=== PATIENT | male | born 1955 | race Caucasian/White ===

== ENCOUNTER 2018-03-20 13:14 | Inpatient (IN) | payer OTHER ==
--- OUTSIDE RECORDS SUMMARY | 2018-03-20 13:16 | XMS REPORT | Continuity of Care Document ---
:1955 Author Organization Interface Problems Problem Status Onset Classification Date Comments Source Date Reported C61 Active 01/31/20 [place] [id number] UNK Active 12/16/19 [place] [id number] DX: Active 11/14/19 [facility] [id number] NEOPLASM OF PROSTATE, Hypertension Active Problem 02/13/2017 [facility] MALIGNANT Active [facility] NEOPLASM OF PROSTATE Medications Medication Details Route Status Patient Ordering Order Source Instructions Provider Date Omnipaque 300 100 mL, Route: Inactive MISC, Drug 2016 [facility] Form: SOLN, ONCE, Start date: 02/10/17 10:18:00 CDT, Stop date: 02/10/17 10:18:00 CDTNotes: (Same as:Omnipaque 300). WASTE: F/P - Black; E - Municipal Trash Bin Acetaminophen 325 1 tab, PO, Q4H, Active MG / Hydrocodone PRN Pain Score 2016 [facility] Bitartrate 5 MG 4-6, 0 Oral Tablet Refill(s) Norvasc 10 mg, 2 tab, No Longer Route: PO, Drug Active 2016 [facility] form: TAB, Daily, Dosing Weight 82.727, kg, Start date: 01/30/17 9:00:00 CDT, Duration: 30 day, Stop date: 02/28/17 9:00:00 CDTNotes: (Same as: Norvasc) Simvastatin 20 mg, 1 tab, No Longer Route: PO, Drug Active 2016 [facility] form: TAB, Bedtime, Dosing Weight 82.727, kg, Start date: 01/29/17 21:00:00 CDT, Duration: 30 day, Stop date: 02/27/17 21:00:00 CDTNotes: (Same as: Zocor) Famotidine 20 mg, 1 tab, No Longer Route: PO, Drug Active 2016 [facility] form: TAB, Q12H, Dosing Weight 82.727, kg, Start date: 01/29/17 21:00:00 CDT, Duration: 30 day, Stop date: 02/28/17 9:00:00 CDTNotes: (Same as: Pepcid) Ciprofloxacin 400 mg, 200 mL, Inactive Route: IVPB, 2016 [facility] Drug form: INJ, [id number], Dosing Weight 82.727, kg, Start date: 01/29/17 20:00:00 CDT, Duration: 1 doses or times, Stop date: 01/29/17 20:00:00 CDT, ABX Indication: Surgical ProphylaxisNote s: Do not refrigerate Promethazine 6.25 mg, Route: Inactive IVPB, ONCE, 2016 [facility] Dosing Weight 82.727, kg, PRN Nausea & Vomiting, Start date: 01/29/17 15:31:00 CDT Ondansetron 4 mg, Route: Inactive IVP, ONCE, 2016 [facility] Dosing Weight 82.727, kg, PRN Nausea & Vomiting, Start date: 01/29/17 15:31:00 CDT Meperidine 12.5 mg, Route: Inactive IVP, Q30Min, 2016 [facility] Dosing Weight 82.727, kg, PRN Other -See Comment, For shivering, Start date: 01/29/17 15:31:00 CDT, Duration: 2 doses or times, Stop date: Limited # of times Flumazenil 0.2 mg, Route: Inactive IVP, PRN, 2016 [facility] Dosing Weight 82.727, kg, PRN Benzodiazepine Reversal, Initial dose, Start date: 01/29/17 15:31:00 CDT, Duration: 30 day, Stop date: 02/28/17 15:30:00 CDT Hydromorphone 0.5 mg, Route: Inactive IVP, Q5Min, 2016 [facility] Dosing Weight 82.727, kg, PRN Pain Score 7-10, Start date: 01/29/17 15:31:00 CDT, Duration: 4 doses or times, Stop date: Limited # of times Naloxone 0.4 mg, Route: Inactive IVP, Q2MIN, 2016 [facility] Dosing Weight 82.727, kg, PRN Narcotic Reversal, Start date: 01/29/17 15:31:00 CDT, Duration: 8 doses or times, Stop date: Limited # of times Albuterol 0.83 2.49 mg, Route: Inactive MG/ML Inhalant NEB, Q20Min, 2016 [facility] Solution Dosing Weight 82.727, kg, PRN Wheezing, Priority: STAT, Start date: 01/29/17 15:31:00 CDT, Duration: 30 day, Stop date: 02/28/17 15:30:00 CDT Diphenhydramine 12.5 mg, Route: Inactive IVP, Drug form: 2016 [facility] INJ, Q6H, Dosing Weight 82.727, kg, PRN Itching, Start date: 01/29/17 15:31:00 CDT, Duration: 30 day, Stop date: 02/28/17 15:30:00 CDT Calcium Chloride 1,000 mL, Rate: Inactive 0.0014 MEQ/ML / 125 ml/hr, 2016 [facility] Potassium Infuse over: 8 Chloride 0.004 hr, Route: IV, MEQ/ML / Sodium Dosing Weight Chloride 0.103 82.727 kg, MEQ/ML / Sodium Total Volume: Lactate 0.028 1,000, Start MEQ/ML Injectable date: 01/29/17 Solution 15:31:00 CDT, Duration: 30 day, Stop date: 02/28/17 15:30:00 CDT Acetaminophen 1,000 mg, Inactive Route: PO, Drug 2016 [facility] form: TAB, ONCE, Dosing Weight 82.727, kg, PRN Pain Score 1-3, Start date: 01/29/17 15:31:00 CDT, Duration: 1 doses or times, Stop date: Limited # of times Oxycodone 5 mg, Route: Inactive PO, Drug form: 2016 [facility] TAB, Q4H, Dosing Weight 82.727, kg, PRN Pain Score 4-6, Start date: 01/29/17 15:31:00 CDT, Duration: 30 day, Stop date: 02/28/17 15:30:00 CDT Hydralazine 10 mg, Route: Inactive IVP, Q20Min, 2016 [facility] Dosing Weight 82.727, kg, PRN Elevated BP, Start date: 01/29/17 15:31:00 CDT, Duration: 2 doses or times, Stop date: Limited # of times Labetalol 10 mg, Route: Inactive IVP, Q5Min, 2016 [facility] Dosing Weight 82.727, kg, PRN Elevated BP, Start date: 01/29/17 15:31:00 CDT, Duration: 5 doses or times, Stop date: Limited # of times esmolol 10 mg, Route: Inactive IVP, Q5Min, 2016 [facility] Dosing Weight 82.727, kg, PRN Other -See Comment, Start date: 01/29/17 15:31:00 CDT, Duration: 5 doses or times, Stop date: Limited # of times Fentanyl 25 microgram, Inactive Route: IVP, 2016 [facility] Q5Min, Dosing Weight 82.727, kg, PRN Pain Score 4-6, Priority: Routine, Start date: 01/29/17 15:31:00 CDT, Duration: 4 doses or times, Stop date: Limited # of times Enoxaparin 40 mg, 0.4 mL, No Longer Route: SUB-Q, Active 2016 [facility] Drug form: INJ, [id number], Dosing Weight 82.727, kg, Start date: 01/29/17 15:00:00 CDT, Duration: 30 day, Stop date: 02/27/17 8:00:00 CDTNotes: (Same as: Lovenox) glycopyrrolate Route: IV, Drug Inactive (ANES) form: INJ, 2016 [facility] ONCE, Stop date: 01/29/17 14:52:00 CDT neostigmine Route: IV, Drug Inactive (ANES) form: INJ, 2016 [facility] ONCE, Stop date: 01/29/17 14:52:00 CDT Saline Flush 0.9% 10 ml, Route: No Longer IVP, Drug Form: Active 2016 [facility] INJ, Dosing Weight 82.727, kg, PRN, PRN Line Flush, Start date: 01/29/17 14:47:00 CDT, Duration: 30 day, Stop date: 02/28/17 14:46:00 CDTNotes: (Same as: BD Posiflush) D5W 1/2NS + KCL 1,000 mL, Rate: No Longer 20mEq/L 1000ml 125 ml/hr, Active 2016 [facility] (Premix) 1,000 mL Infuse over: 8 hr, Route: IV, Dosing Weight 82.727 kg, Total Volume: 1,000, Start date: 01/29/17 14:47:00 CDT, Duration: 30 day, Stop date: 02/28/17 14:46:00 CDTNotes: PREMIX IV - Do Not Alter WASTE: F/P - Sink; E - Municipal Trash Bin Ondansetron 4 mg, 2 mL, No Longer Route: IVP, Active 2016 [facility] Drug form: INJ, Q6H, Dosing Weight 82.727, kg, PRN Nausea & Vomiting, Start date: 01/29/17 14:47:00 CDT, Duration: 30 day, Stop date: 02/28/17 14:46:00 CDTNotes: (Same as: Zofran) MEDICATION WASTE Product Size: 4 mg Product Wasted: ___ mg Promethazine 12.5 mg, 0.5 No Longer mL, Route: Active 2016 [facility] IVPB, Q4H, Dosing Weight 82.727, kg, PRN Nausea & Vomiting, Start date: 01/29/17 14:47:00 CDT, Duration: 30 day, Stop date: 02/28/17 14:46:00 CDTNotes: Do not give IV push. (Same as: Phenergan) Acetaminophen 325 1 tab, Route: No Longer MG / Hydrocodone PO, Drug Form: Active 2016 [facility] Bitartrate 10 MG TAB, Dosing Oral Tablet Weight 82.727, kg, Q4H, PRN Pain Score 4-6, Start date: 01/29/17 14:47:00 CDT, Duration: 30 day, Stop date: 02/28/17 14:46:00 CDTNotes: Do not exceed 4gm/day of acetaminophen. (Same as: [place] 325/10) Morphine 2 mg, 1 mL, No Longer Route: IVP, Active 2016 Drug form: SOLN, Q3H, Dosing Weight 82.727, kg, PRN Pain Score 1-3, Start date: 01/29/17 14:47:00 CDT, Duration: 30 day, Stop date: 02/28/17 14:46:00 CDT Acetaminophen 325 1 tab, Route: No Longer MG / Hydrocodone PO, Drug Form: Active 2016 Bitartrate 5 MG TAB, Dosing Oral Tablet Weight 82.727, kg, Q4H, PRN Pain Score 4-6, Start date: 01/29/17 14:47:00 CDT, Duration: 30 day, Stop date: 02/28/17 14:46:00 CDTNotes: (Same as: [place] 325/5) Do not exceed 4gm/day of acetaminophen. ondansetron Route: IV, Drug Inactive (ANES) form: INJ, 2016, Stop date: 01/29/17 13:27:00 CDT hydromorphone Route: IV, Drug Inactive (ANES) form: INJ, 2016, Stop date: 01/29/17 11:12:00 CDT acetaminophen Route: IV, Drug Inactive (ANES) form: INJ, 2016, Stop date: 01/29/17 8:32:00 CDT dexamethasone Route: IV, Drug Inactive MH (ANES) form: INJ2016, Stop date: 01/29/17 8:32:00 CDT ciprofloxacin Route: IV, Drug Inactive MH (ANES) form: INJ, 2016, Stop date: 01/29/17 8:32:00 CDT lidocaine (ANES) Route: IV, Drug Inactive form: INJ, 2016, Stop date: 01/29/17 8:27:00 CDT fentaNYL (ANES) Route: IV, Drug Inactive form: [id number], Stop date: 01/29/17 8:27:00 CDT midazolam (ANES) Route: IV, Drug Inactive form: SOLN, 2016, Stop date: 01/29/17 8:27:00 CDT propofol (ANES) Route: IV, Drug Inactive form: INJ, 2016 [facility] ONCE, Stop date: 01/29/17 8:27:00 CDT rocuronium (ANES) Route: IV, Drug Inactive form: INJ, 2016 [facility] ONCE, Stop date: 01/29/17 8:27:00 CDT succinylcholine Route: IV, Drug Inactive (ANES) form: INJ, 2016 ONCE, Stop date: 01/29/17 8:27:00 CDT LR 1000 mL INJ Route: IV, Inactive (ANES) Total Volume: 2016 [facility] 1,000, Start date: 01/29/17 7:25:00 CDT, Stop date: 01/29/17 8:25:00 CDT Albuterol 0.833 3 mL, Route: Inactive MG/ML / NEB, Dosing 2016 Ipratropium Weight 82.727, [place] 0.167 kg, ONCE, STAT, MG/ML Inhalant Start date: Solution 01/29/17 6:23:00 CDT, Stop date: 01/29/17 6:23:00 CDT Calcium Chloride 1,000 mL, Rate: Inactive 0.0014 MEQ/ML / 25 ml/hr, 2016 Potassium Infuse over: 40 Chloride 0.004 hr, Route: IV, MEQ/ML / Sodium Dosing Weight Chloride 0.103 82.727 kg, MEQ/ML / Sodium Total Volume: Lactate 0.028 1,000, Start MEQ/ML Injectable date: 01/29/17 Solution 6:23:00 CDT, Duration: 30 day, Stop date: 02/28/17 6:22:00 CDT aspirin 81 mg 81 mg=1 tab, Active tablet, enteric PO, Daily, # 90 2016 coated tab, 3 Refill(s) simvastatin 20 mg 20 mg=1 tab, Active oral tablet PO, Bedtime, 0 2016 Refill(s) Amlodipine 10 MG 10 mg=1 tab, Active Oral Tablet PO, Daily, 0 2016 [Norvasc] Refill(s) Allergies, Adverse Reactions, Alerts Substance Category Reaction Severity Reaction Status Date Comments Source type Reported iodine Assertion Drug Active allergy [facility] penicillins Assertion Drug Active allergy [facility] Immunizations Immunization Date Given Site Status Last Updated Comments Source Results Order Name Results Value Reference Date Interpretation Comments Source Range Cystogram Cystogram DX Patient Name: VANITA STOCK 02/10 - - [facility] : 1955; Age: 61 years Male MR: [id number] Read by: Skip Alex MD Dictated Date/time: 02/10/17 11:33 Electronically Signed by: Skip Alex MD 02/10/17 11:34 FINAL REPORT Study: Cystogram DX 02/10/2017 10:10 AM CDT Clinical Indication: fluoro time: 58 sec. dose: 55 mGy [id number]/ SodiumChloride - C61 Malignant neoplasm of prostate COMPARISON: None TECHNIQUE: Approximately 285 cc of water-soluble contrast was infused through the patient's existing Ventura catheter. Early, delayed filling, and post void radiographs were obtained in AP and oblique projections. DISCUSSION: Preliminary radiograph: Normal. Urinary bladder: Bladder contours are smooth. No extravasated contrast is identified during filling or following voiding. No significant post void residual. IMPRESSION: Normal cystogram. ELECTROLYT AGAP 10.0 meq/L 10.0 - 01/30 ES 20.0 [facility] ELECTROLYT eGFR 102 01/30 Result Comment: The eGFR is calculated using the CKD-EPI formula. In most young, healthy individuals the eGFR will be >90 mL/ min/1.73m2. The eGFR declines with age. An eGFR of 60-89 may be normal in ES mL/min/1.7 some populations, particularly the elderly, for whom the CKD-EPI formula has not been extensively validated. Use of the eGFR is not recommended in the following populations: [facility] 3m2 Individuals with unstable creatinine concentrations, including patients and those with serious co-morbid conditions. Patients with extremes in muscle mass or diet. The data above are obtained from the National Kidney Disease Education Program (NKDEP) which additionally recommends that when the eGFR is used in patients with extremes of body mass index for purposes of drug dosing, the eGFR should be multiplied by the estimated BMI. ELECTROLYT Calcium Lvl 7.7 mg/dL 8.5 - 10.5 01/30 [place] ELECT[facility]OLYT CO2 26 meq/L 24 - 32 01/30 ES [place] ELECT[facility]OLYT Potassium 4.0 meq/L 3.5 - 5.1 01/30 ES Lvl /2016 [facility] ELECTROLYT Chloride Lvl 106 meq/L 95 - 109 01/30 [facility] ELECT[facility]OLYT Creatinine 0.73 mg/dL 0.50 - 01/30 ES Lvl 1.40 /2016 [place] ELECTROLYT Sodium Lvl 138 meq/L 135 - 145 01/30 [facility] ELECT[facility]OLYT BUN 9 mg/dL 7 - 22 01/30 [place] [facility]LECT[facility] Glucose Lvl 124 mg/dL 70 - 99 01/30 [facility] HEMATOLOGY MPV 7.4 fL 7.4 - 10.4 01/30 [facility] HEMATOLOGY MCV 90.3 fL 80.0 - 01/30 94.0 [facility] HEMATOLOGY RBC 4.02 M/CMM 4.70 - 01/30 6.10 [facility] HEMATOLOGY Hct 36.3 % 42.0 - 01/30 54.0 [facility] HEMATOLOGY Hgb 12.6 g/dL 14.0 - 01/30 18.0 [facility] HEMATOLOGY WBC 10.5 K/CMM 3.7 - 10.4 01/30 [facility] HEMATOLOGY MCHC 34.8 g/dL 32.0 - 01/30 36.0 [facility] HEMATOLOGY MCH 31.4 pg 27.0 - 01/30 31.0 [facility] HEMATOLOGY Platelet 218 K/CMM 133 - 450 01/30 [facility] HEMATOLOGY RDW 12.8 % 11.5 - 01/30 14.5 [facility] HEMATOLOGY Lymphocytes 12.6 % 20.0 - 01/30 40.0 [facility] HEMATOLOGY Segs 75.0 % 45.0 - 01/30 75.0 /2016 [facility] HEMATOLOGY Basophils 0.1 % 0.0 - 1.0 01/30 [facility] HEMATOLOGY Monocytes 12.3 % 2.0 - 12.0 01/30 [facility] HEMATOLOGY Lymphocytes 1.3 K/CMM 1.0 - 5.5 01/30 MH # /2016 [facility] HEMATOLOGY Segs-Bands # 7.9 K/CMM 1.5 - 8.1 01/30 [facility] HEMATOLOGY Monocytes # 1.3 K/CMM 0.0 - 0.8 01/30 [facility] BLOOD BANK Antibody Negative 01/19 RESULTS [facility] (01/19/17 1:24 PM) BLOOD BANK ABO/Rh AB POS 01/19 RESULTS [facility] CHEM PANEL eGFR 102 01/19 Result Comment: The eGFR is calculated using the CKD-EPI formula. In most young, healthy individuals the eGFR will be >90 mL/ min/1.73m2. The eGFR declines with age. An eGFR of 60-89 may be normal in mL/min/1.7 /2016 some populations, particularly the elderly, for whom the CKD-EPI formula has not been extensively validated. Use of the eGFR is not recommended in the following populations: [facility] 3m2 Individuals with unstable creatinine concentrations, including patients and those with serious co-morbid conditions. Patients with extremes in muscle mass or diet. The data above are obtained from the National Kidney Disease Education Program (NKDEP) which additionally recommends that when the eGFR is used in patients with extremes of body mass index for purposes of drug dosing, the eGFR should be multiplied by the estimated BMI. CHEM PANEL Calcium Lvl 8.5 mg/dL 8.5 - 10.5 01/19 [facility] CHEM PANEL CO2 25 meq/L 24 - 32 01/19 [facility] CHEM PANEL Glucose Lvl 98 mg/dL 70 - 99 01/19 [facility] CHEM PANEL BUN 14 mg/dL 7 - 01/19 [facility] CHEM PANEL Creatinine 0.72 mg/dL 0.50 - 01/19 Lvl 1.40 [facility] CHEM PANEL Potassium 3.9 meq/L 3.5 - 5.1 01/19 Lvl [facility] CHEM PANEL Chloride Lvl 104 meq/L 95 - 109 01/19 [facility] CHEM PANEL Sodium Lvl 136 meq/L 135 - 145 01/19 [facility] CHEM PANEL AGAP 10.9 meq/L 10.0 - 01/19 20. [facility] HEMATOLOGY MPV 7.4 fL 7.4 - 10.4 01/19 [facility] HEMATOLOGY MCHC 35.0 g/dL 32.0 - 01/19 36.0 [facility] HEMATOLOGY RDW 12.8 % 11.5 - 01/19 MH 14. [facility] HEMATOLOGY Platelet 224 K/CMM 133 - 450 01/19 [facility] HEMATOLOGY MCV 89.7 fL 80.0 - 01/19 MH 94.0 /2016 [facility] HEMATOLOGY MCH 31.4 pg 27.0 - 01/19 MH 31.0 /2016 [facility] HEMATOLOGY Hgb 15.8 g/dL 14.0 - 01/19 MH 18.0 /2016 [facility] HEMATOLOGY Hct 45.1 % 42.0 - 01/19 MH 54.0 /2016 [facility] HEMATOLOGY WBC 8.4 K/CMM 3.7 - 10.4 01/19 [facility] HEMATOLOGY RBC 5.03 M/CMM 4.70 - 01/19 MH 6.10 /2016 [facility] HEMATOLOGY Lymphocytes 2.5 K/CMM 1.0 - 5.5 01/19 MH # /2016 [facility] HEMATOLOGY Segs-Bands # 4.8 K/CMM 1.5 - 8.1 01/19 [facility] HEMATOLOGY Monocytes # 0.8 K/CMM 0.0 - 0.8 01/19 [facility] HEMATOLOGY Eosinophils 0.3 K/CMM 0.0 - 0.5 01/19 /2016 [facility] HEMATOLOGY Basophils 0.6 % 0.0 - 1.0 01/19 [facility] HEMATOLOGY Lymphocytes 29.4 % 20.0 - 01/19 MH 40.0 [facility] HEMATOLOGY Eosinophils 3.7 % 0.0 - 4.0 01/19 [facility] HEMATOLOGY Monocytes 9.2 % 2.0 - 12.0 01/19 [facility] HEMATOLOGY Segs 57.1 % 45.0 - 01/19 75.0 /2016 [facility] HEMATOLOGY PTT 28.5 s 22.9 - 01/19 MH 35.8 /2016 [facility] HEMATOLOGY PT 12.8 s 12.0 - 01/19 MH 14.7 /2016 [facility] HEMATOLOGY INR 0.94 0.85 - 01/19 1.17 /2016 [facility] SPECIAL PSA 21.10 0.00 - 01/19 CHEMISTRY ng/mL 4.00 [facility] URINE AND UA Color Ltyellow 01/19 STOOL [facility] URINE AND UA <=1.0 0.1 - 1.0 01/19 STOOL Urobilinogen mg/dL /2016 [facility] URINE AND UA Sq Epi None Seen 01/19 STOOL [facility] URINE AND UA Turbidity Clear Clear 01/19 STOOL /2016 [facility] (01/19/17 1:24 PM) URINE AND UA Glucose Negative Negative 01/19 STOOL mg/dL mg/dL [facility] URINE AND UA pH 6.0 5.0 - 8.0 01/19 [facility] URINE AND UA Spec Grav 1.005 <=1.030 01/19 [facility] URINE AND UA Leuk Est Negative Negative 01/19 [facility] (01/19/17 1:24 PM) URINE AND UA Ketones Negative Negative 01/19 STOOL mg/dL mg/dL URINE AND UA WBC 1 /HPF 0 - 5 01/19 URINE AND UA Nitrite Negative Negative 01/19 [facility] (01/19/17 1:24 PM) URINE AND UA RBC 2 /HPF 0 - 2 01/19 [facility] URINE AND UA Bili Negative Negative 01/19 [facility] *NA* (01/19/17 1:24 PM) URINE AND UA Blood Negative Negative 01/19 [facility] (01/19/17 1:24 PM) URINE AND UA Protein Negative Negative 01/19 STOOL mg/dL mg/dL [facility] BLOOD BANK RBC product Product available 01/19 RESULTS [facility] (01/19/17 12:34 PM) Chest 2 Chest 2 Patient Name: VANITA STOCK 01/19 - views DX views DX : 1955; Age: 61 years y/o Male MR: [id number] Read by: Oscar Gunderson MD Dictated Date/time: 01/19/17 16:28 Electronically Signed by: Oscar Gunderson MD 01/19/17 16:40 FINAL REPORT * CHEST, 2 views HISTORY: Coughing - preoperative study. The side-port COMPARISON: None TECHNIQUE: Frontal and lateral radiographs of the chest were obtained. FINDINGS: The lungs are clear. There are no pleural effusions. The heart and pulmonary vasculature are within normal limits. The regional skeleton is unremarkable. IMPRESSION: 1. No active disease. SL: [id number] Bone scan Bone scan NM Bone scan NM 11/19 - - CLINICAL HX: C61 Malignant neoplasm of prostate - C61 Malignant neoplasm of prostate. Read by: Leno Putnam MD Dictated Date/time: 11/19/16 17:07 Electronically Signed by: Leno Putnam MD 11/19/16 17:08 FINAL REPORT COMPARISON: none TECHNIQUE: Delayed whole-body imaging was performed following IV administration of 28 mCi of Technetium 99m-MDP. Spot images of the pelvis, thorax and skull are also submitted for review. IV Site: Right Antecubital FINDINGS: Physiologic distribution of tracer is noted in the regional skeleton. No abnormal accumulation of tracer activity is present to suggest metastatic disease. Increased activity in the peripheral joints is consistent with degenerative change. Symmetric tracer distribution is noted in the kidneys.. Normal bladder activity is seen. IMPRESSION: No significant scintigraphic abnormality is noted on the whole body bone scan. SL: [id number] Vital Signs Vital Sign Value Date Comments Source Systolic (mm Hg) 139 01/31/2017 [facility] Diastolic (mm Hg) 85 01/31/2017 [facility] Temperature Oral (F) 98.5 F 01/31/2017 [facility] Respitory Rate 16 01/31/2017 [facility] Heart Rate 76 01/31/2017 [facility] Systolic (mm Hg) 127 01/31/2017 [facility] Diastolic (mm Hg) 77 01/31/2017 [facility] Heart Rate 75 01/31/2017 [facility] Temperature Oral (F) 99.0 F 01/31/2017 [facility] Respitory Rate 16 01/31/2017 [facility] Respitory Rate 14 01/31/2017 [facility] Temperature Oral (F) 98.0 F 01/31/2017 [facility] Heart Rate 75 01/31/2017 [facility] Systolic (mm Hg) 128 01/31/2017 [facility] Diastolic (mm Hg) 80 01/31/2017 [facility] Height 172.72 cm 01/29/2017 [facility] BMI Calculated 27.49 01/29/2017 [facility] Weight 82 01/29/2017 [facility] BMI Calculated 27.73 01/19/2017 [facility] Weight 82.727 01/19/2017 [facility] Height 172.72 cm 01/19/2017 [facility] Encounters Location Location Encounter Encounter Reason Attending ADM DC Status Source Details Type Number For Provider Date Date Visit [facility] Outpatient [id number] [place] 11/19 11/20 [facility] Inpatient [id number] [place] 01/29 01/31 [facility] Outpatient [id number] Wiliam 02/10 02/11 YEN Morton /2016 [facility] Procedures Procedure Code Date Perfomer Comments Source Angiogram<sup>1< [id number] about 2011 - [facility] /sup> negative
[2018-03-20] MEDS ORDERED: FENTANYL CITR 100 MCG/2 ML ONE (14:21)
[2018-03-20] MEDS ORDERED: Levofloxacin 750mg IV 750 MG/150 ML BAG IV ONE (14:21)
[2018-03-20] MEDS ORDERED: VANCOMYCIN 1 GM/250 ML BAG ONE (14:21)
[2018-03-20] MEDS ORDERED: ONDANSETRON 4 MG/2 ML VIAL ONE (14:21)
[2018-03-20] MEDS ORDERED: NA CHLORIDE 0.9% 1,000 ML ONE (14:22)
[2018-03-20 14:37] LABS: Absolute Lymphocytes (CBC) 0.3 K/uL (0.7-4.9); Absolute Monocytes 0.7 K/uL (0.1-1.3); Absolute Neutrophil 18.9 K/uL (1.8-8.0); Basophils % 0.3 % (0-1.3); Eosinophils % 0.1 % (0-4.4); Hematocrit 35.3 % (39.6-49.0); Lymphocytes % 1.7 % (15.3-44.8); MCH 30.7 pg (27.0-35.0); MCV 88.7 fL (80-100); Monocytes % 3.3 % (3.3-12.3); RBC Red Blood Cell Count 3.98 M/uL (4.33-5.43)
[2018-03-20 14:41] LABS: Protime INR 1.44
[2018-03-20 14:53] LABS: Potassium 3.8 mmol/L (3.5-5.1)
--- NOTE | 2018-03-20 14:54 | RAD REPORT ---
EXAM DESCRIPTION: USExtremity Venous Uni Ltd03/20/2018 2:48 pm CLINICAL HISTORY: Right leg pain and swelling. COMPARISON: None. FINDINGS: Right common femoral, superficial femoral, popliteal and right posterior tibial veins are compressible and demonstrate augmentation. Doppler demonstrates good flow. IMPRESSION: No evidence of deep venous thrombosis involving the right lower extremity.
[2018-03-20] MEDS ORDERED: ACETAMINOPHEN 500 MG TAB ONE (15:02)
--- NOTE | 2018-03-20 15:05 | EDPHYS ---
Physician Documentation [facility] Name: Brandon Jenkins Age: 62 yrs Sex: Male : 1955 Arrival Date: 03/20/2018 Time: 13:16 Bed 18 Private MD: ED Physician GenovevaBrandon HPI: 03/20 14:24 This 62 yrs old Male presents to ER via Wheelchair with complaints of Leg jr8 Swelling. 14:24 Onset: The symptoms/episode began/occurred acutely, 3 day(s) ago. Modifying factors: jr8 The symptoms are alleviated by nothing. the symptoms are aggravated by movement, weight bearing. Associated signs and symptoms: Pertinent positives: fever, swelling, vomiting, warmth. Severity of symptoms: At their worst the symptoms were moderate, in the emergency department the symptoms are unchanged. The patient has not experienced similar symptoms in the past. The patient has not recently seen a physician. Patient stated that he bumped his right knee while trying to use the bathroom the other night. Since then he has noticed pain has increased and now over the past couple of days has had swelling, erythema, tenderness to right lower extremity with fevers and chills . Historical: - Allergies: 13:37 PENICILLINS (Anaphylaxis); aj1 13:37 Iodine; aj1 - Home Meds: 13:37 Norvasc Oral [Active]; Lupron Depot intramuscular intramuscular [Active]; Simvastatin aj1 Oral [Active]; Calcium Carbonate Oral [Active]; CoQ-10 oral oral [Active]; Aspirin Oral [Active]; Vitamin D3 oral oral [Active]; - PMHx: 13:37 Hypertension; Hyperlipidemia; Angina; Asthma; aj1 - PSHx: 13:37 prostatectomy; aj1 - Immunization history:: Flu vaccine is not up to date. - Social history:: Smoking status: Patient uses tobacco products, smokes one pack cigarettes per day. - Ebola Screening: : Patient denies travel to an Ebola-affected area in the 21 days before illness onset. ROS: 14:24 Eyes: Negative for injury, pain, redness, and discharge, ENT: Negative for injury, jr8 pain, and discharge, Neck: Negative for injury, pain, and swelling, Cardiovascular: Negative for chest pain, palpitations, and edema, Respiratory: Negative for shortness of breath, cough, wheezing, and pleuritic chest pain, Abdomen/GI: Negative for abdominal pain, nausea, vomiting, diarrhea, and constipation, Back: Negative for injury and pain, Neuro: Negative for headache, weakness, numbness, tingling, and seizure. 14:24 Constitutional: Positive for body aches, chills, fever. 14:24 MS/extremity: Positive for erythema, pain, swelling, tenderness, of the right leg. Exam: 14:24 Eyes: Pupils equal round and reactive to light, extra-ocular motions intact. Lids and jr8 lashes normal. Conjunctiva and sclera are non-icteric and not injected. Cornea within normal limits. Periorbital areas with no swelling, redness, or edema. ENT: Nares patent. No nasal discharge, no septal abnormalities noted. Tympanic membranes are normal and external auditory canals are clear. Oropharynx with no redness, swelling, or masses, exudates, or evidence of obstruction, uvula midline. Mucous membranes moist. Neck: Trachea midline, no thyromegaly or masses palpated, and no cervical lymphadenopathy. Supple, full range of motion without nuchal rigidity, or vertebral point tenderness. No Meningismus. Cardiovascular: Regular rate and rhythm with a normal S1 and S2. No gallops, murmurs, or rubs. Normal PMI, no JVD. No pulse deficits. Respiratory: Lungs have equal breath sounds bilaterally, clear to auscultation and percussion. No rales, rhonchi or wheezes noted. No increased work of breathing, no retractions or nasal flaring. Abdomen/GI: Soft, non-tender, with normal bowel sounds. No distension or tympany. No guarding or rebound. No evidence of tenderness throughout. Back: No spinal tenderness. No costovertebral tenderness. Full range of motion. Neuro: Awake and alert, GCS 15, oriented to person, place, time, and situation. Cranial nerves II-XII grossly intact. Motor strength 5/5 in all extremities. Sensory grossly intact. Cerebellar exam normal. Normal gait. 14:24 Musculoskeletal/extremity: Extremities: grossly normal except: noted in the right leg: Patient has moderate amount of swelling to right lower leg below the knee when compared to left leg. Tenderness, petechia, and erythema noted. 2 + pedal pulses present bilaterally with normal sensation. Increased circumference to right leg compared to left. Reactive inguinal lymphadenitis noted to right side . 14:24 Skin: Appearance: Color: normal in color, pink, Temperature: normal temperature. Vital Signs: 13:37 BP 118 / 69; Pulse 106; Resp 20; Temp 99.3(TE); Pulse Ox 95% on R/A; Weight 83.91 kg aj1 (R); Height 5 ft. 8 in. (172.72 cm) (R); Pain 2/10; 14:48 BP 132 / 87; Pulse 97; Resp 18; Temp 99.9(O); Pulse Ox 99% on R/A; em 16:03 BP 109 / 69; Pulse 98; Resp 16; Temp 100.3(O); Pulse Ox 95% on R/A; Pain 0/10; em 16:41 Temp 98.9(O); em 13:37 Body Mass Index 28.13 (83.91 kg, 172.72 cm) aj1 MDM: 13:41 Patient medically screened. 8 15:03 Data reviewed: vital signs, nurses notes, lab test result(s), radiologic studies, jr8 ultrasound. Data interpreted: Pulse oximetry: on room air is 99 %. Interpretation: normal. Counseling: I had a detailed discussion with the patient and/or guardian regarding: the historical points, exam findings, and any diagnostic results supporting the discharge/admit diagnosis, lab results, radiology results, the need for further work-up and treatment in the hospital. Physician consultation: Luis Sanzkrupagloria GAGNON was called at 15:03, was contacted at 15:03, regarding admission, to the medical/surgical unit. consult, patient's condition, and will see patient. 03/20 14:02 Order name: CBC with Diff; Complete Time: 15:32 jr8 03/20 14:02 Order name: Basic Metabolic Panel; Complete Time: 14:54 8 03/20 14:02 Order name: Blood Culture Adult (2) 8 03/20 14:02 Order name: Protime (+inr); Complete Time: 14:54 8 03/20 15:19 Order name: Manual Differential; Complete Time: 15:32 EDWV 03/20 15:46 Order name: Urine Microscopic Only em 03/20 14:02 Order name: US Extremity Venous Unilateral Ltd; Complete Time: 14:55 8 03/20 16:13 Order name: Blood Culture EDWV 03/20 16:30 Order name: Urine Dipstick--Ancillary (enter results) ms 03/20 14:02 Order name: IV; Complete Time: 14:21 jr8 Administered Medications: 14:25 Drug: NS 0.9% 1000 ml Route: IV; Rate: 1000 ml; Site: right antecubital; em 15:58 Follow up: IV Status: Completed infusion; IV Intake: 1000ml em 14:26 Drug: fentaNYL (PF) 50 mcg Route: IVP; Site: right antecubital; ss 15:06 Follow up: Response: No adverse reaction; Pain is decreased em 14:26 Drug: Zofran 4 mg Route: IVP; Site: right antecubital; ss 15:07 Follow up: Response: No adverse reaction em 15:06 Drug: vancoMYCIN 1 grams Route: IVPB; Infused Over: 2 hrs; Site: right antecubital; em 16:38 Follow up: Response: No adverse reaction; IV Status: Infusion continued upon admission; em IV Intake: 150ml 15:06 Drug: LevaQUIN 750 mg Volume: 150 ml; Route: IVPB; Infused Over: 90 mins; Site: right em antecubital; 16:38 Follow up: Response: No adverse reaction; IV Status: Completed infusion; IV Intake: em 150ml 15:07 Drug: Tylenol 1000 mg Route: PO; em 16:38 Follow up: Response: No adverse reaction; Temperature is decreased em Disposition: 17:25 Co-signature as Attending Physician, Brandon Tomas MD I agree with the assessment and kdr plan of care. Disposition: 03/20/18 15:04 Hospitalization ordered by Luis Woods for Inpatient Admission. Preliminary diagnosis are Cellulitis of right lower limb, Acute lymphadenitis of lower limb. - Bed requested for Telemetry/MedSurg (Inpatient). - Status is Inpatient Admission. em - Condition is Stable. - Problem is new. - Symptoms are unchanged. UTI on Admission? No Signatures: Dispatcher [employer] [facility] Naina Nguyen RN RN aj1 Brandon Tomas MD MD kdr Francisco Jhaveri, MILK COLLECTOR MILK COLLECTOR em Fatuma Castellon RN RN Mike Alvarez PA PA jr8 Sammi Saldaña RN RN df Corrections: (The following items were deleted from the chart) 14:58 14:24 Musculoskeletal/extremity: Extremities: grossly normal except: noted in the right jr8 leg: Patient has moderate amount of swelling to right lower leg below the knee when compared to left leg. Tenderness, petechia, and erythema noted. 2 + pedal pulses present bilaterally with normal sensation. Increased circumference to right leg compared to left , jr8 15:58 15:46 [place] ordered. em em 16:07 15:04 Hospitalization Ordered by Luis Woods DO for Inpatient Admission. Preliminary df diagnosis is Cellulitis of right lower limb; Acute lymphadenitis of lower limb. Bed requested for Telemetry/MedSurg (Inpatient). Status is Inpatient Admission. Condition is Stable. Problem is new. Symptoms are unchanged. UTI on Admission? No. jr8 16:39 16:07 03/20/2018 15:04 Hospitalization Ordered by Luis Woods DO for Inpatient em Admission. Preliminary diagnosis is Cellulitis of right lower limb; Acute lymphadenitis of lower limb. Bed requested for Telemetry/MedSurg (Inpatient). Status is Inpatient Admission. Condition is Stable. Problem is new. Symptoms are unchanged. UTI on Admission? No. df
--- NOTE | 2018-03-20 15:05 | ER ---
Nurse's Notes [facility] Name: Brandon Jenkins Age: 62 yrs Sex: Male : 1955 Arrival Date: 03/20/2018 Time: 13:16 Bed 18 Private MD: Diagnosis: Cellulitis of right lower limb;Acute lymphadenitis of lower limb Presentation: 03/20 13:29 Presenting complaint: Patient states: Thursday night at about midnight he accidentally aj1 kicked an end table with his right knee. The next morning he started having chills reports he was "shivering uncontrollably" and his right knee was swollen. Now the entire lower part of his leg is swollen and he is unable to bear weight on the leg without pain. Reports he feels like he as been running fever as well. Transition of care: patient was not received from another setting of care. Onset of symptoms was March 2018. Risk Assessment: Do you want to hurt yourself or someone else? Patient reports no desire to harm self or others. Initial Sepsis Screen: Does the patient meet any 2 criteria? HR > 90 bpm. No. Patient's initial sepsis screen is negative. Does the patient have a suspected source of infection? Yes: Skin breakdown/wound. Care prior to arrival: None. 13:29 Method Of Arrival: Wheelchair aj1 13:29 Acuity: VIRIDIANA 3 aj1 Triage Assessment: 13:37 General: Appears in no apparent distress. comfortable, Behavior is calm, cooperative, aj1 appropriate for age. Pain: Complains of pain in right leg Pain currently is 2 out of 10 on a pain scale. at worst was 10 out of 10 on a pain scale. Neuro: Level of Consciousness is awake, alert, obeys commands. Cardiovascular: Patient's skin is warm and dry. Respiratory: Airway is patent Respiratory effort is even, unlabored, Respiratory pattern is regular, symmetrical. Historical: - Allergies: 13:37 PENICILLINS (Anaphylaxis); aj1 13:37 Iodine; aj1 - Home Meds: 13:37 Norvasc Oral [Active]; Lupron Depot intramuscular intramuscular [Active]; Simvastatin aj1 Oral [Active]; Calcium Carbonate Oral [Active]; CoQ-10 oral oral [Active]; Aspirin Oral [Active]; Vitamin D3 oral oral [Active]; - PMHx: 13:37 Hypertension; Hyperlipidemia; Angina; Asthma; aj1 - PSHx: 13:37 prostatectomy; aj1 - Immunization history:: Flu vaccine is not up to date. - Social history:: Smoking status: Patient uses tobacco products, smokes one pack cigarettes per day. - Ebola Screening: : Patient denies travel to an Ebola-affected area in the 21 days before illness onset. Screenin:00 Abuse screen: Denies threats or abuse. Nutritional screening: No deficits noted. em Tuberculosis screening: No symptoms or risk factors identified. Fall Risk None identified. Assessment: 13:55 General: Appears in no apparent distress. uncomfortable, Behavior is calm, cooperative. em Pain: Complains of pain in right leg Pain currently is 2 out of 10 on a pain scale. at worst was 9 out of 10 on a pain scale. Neuro: Level of Consciousness is awake, alert, obeys commands, Oriented to person, place, time, situation. Cardiovascular: Denies chest pain, shortness of breath, Capillary refill < 3 seconds Patient's skin is warm and dry. Respiratory: Airway is patent Respiratory effort is even, unlabored, Respiratory pattern is regular, symmetrical, Breath sounds are clear bilaterally. GI: Abdomen is round non-distended, Patient currently denies nausea, vomiting. : No signs and/or symptoms were reported regarding the genitourinary system. EENT: No signs and/or symptoms were reported regarding the EENT system. Derm: Skin is intact, swelling, redness and hot to the touch right lower extremity. Musculoskeletal: Range of motion: limited in right ankle. 13:57 General: The previous assessment is accurate, call light remains within reach. . ss 14:49 Reassessment: Patient appears in no apparent distress at this time. Patient and/or em family updated on plan of care and expected duration. Pain level reassessed. Patient is alert, oriented x 3, equal unlabored respirations, skin warm/dry/pink. pt request a blanket due to shivering, pt oral pt 99.9 at this time, provider notified. 15:08 Reassessment: Dr. Woods at bedside. em 15:30 Reassessment: Patient appears in no apparent distress at this time. received verbal em order for straight cath and urine micro. from Dr. Woods. 15:59 Reassessment: Patient appears in no apparent distress at this time. pt kindly refused em straight cath. pt states he can urinate into a urinal, pt given 4 towels to taught how to do a clean catch, pt verbally understands how to give specimen, provider notified. Vital Signs: 13:37 BP 118 / 69; Pulse 106; Resp 20; Temp 99.3(TE); Pulse Ox 95% on R/A; Weight 83.91 kg aj1 (R); Height 5 ft. 8 in. (172.72 cm) (R); Pain 2/10; 14:48 BP 132 / 87; Pulse 97; Resp 18; Temp 99.9(O); Pulse Ox 99% on R/A; em 16:03 BP 109 / 69; Pulse 98; Resp 16; Temp 100.3(O); Pulse Ox 95% on R/A; Pain 0/10; em 16:41 Temp 98.9(O); em 13:37 Body Mass Index 28.13 (83.91 kg, 172.72 cm) aj1 ED Course: 13:16 Patient arrived in ED. tw3 13:33 Triage completed. aj1 13:37 Arm band placed on Patient placed in an exam room. aj1 13:41 Mike Alvarez PA is PHCP. jr8 13:41 Brandon Tomas MD is Attending Physician. jr8 13:48 Francisco Jhaveri LVN is Primary Nurse. em 14:00 Patient has correct armband on for positive identification. Bed in low position. Call em light in reach. Side rails up X2. Adult w/ patient. 14:16 Initial lab(s) drawn, by me, sent to lab. First set of blood cultures drawn by me. dh3 Inserted saline lock: 20 gauge in right antecubital area, using aseptic technique. Blood collected. 14:33 Second set of blood cultures drawn by me. Inserted saline lock: 20 gauge in left wrist, dh3 using aseptic technique. Blood collected. 14:47 Ultrasound completed. Patient tolerated well. aa4 14:47 US Extremity Venous Unilateral Ltd In Process Unspecified. EDMS 15:03 Luis Woods DO is Hospitalizing Provider. jr8 16:16 No provider procedures requiring assistance completed. em 16:19 CT completed. Patient moved to SD via wheelchair. Patient moved back from CT. cw1 16:38 Patient admitted, IV remains in place. em Administered Medications: 14:25 Drug: NS 0.9% 1000 ml Route: IV; Rate: 1000 ml; Site: right antecubital; em 15:58 Follow up: IV Status: Completed infusion; IV Intake: 1000ml em 14:26 Drug: fentaNYL (PF) 50 mcg Route: IVP; Site: right antecubital; ss 15:06 Follow up: Response: No adverse reaction; Pain is decreased em 14:26 Drug: Zofran 4 mg Route: IVP; Site: right antecubital; ss 15:07 Follow up: Response: No adverse reaction em 15:06 Drug: vancoMYCIN 1 grams Route: IVPB; Infused Over: 2 hrs; Site: right antecubital; em 16:38 Follow up: Response: No adverse reaction; IV Status: Infusion continued upon admission; em IV Intake: 150ml 15:06 Drug: LevaQUIN 750 mg Volume: 150 ml; Route: IVPB; Infused Over: 90 mins; Site: right em antecubital; 16:38 Follow up: Response: No adverse reaction; IV Status: Completed infusion; IV Intake: em 150ml 15:07 Drug: Tylenol 1000 mg Route: PO; em 16:38 Follow up: Response: No adverse reaction; Temperature is decreased em Intake: 15:58 IV: 1000ml; Total: 1000ml. em 16:38 IV: 150ml; Total: 1150ml. em 16:38 IV: 150ml; Total: 1300ml. em Outcome: 15:04 Decision to Hospitalize by Provider. jr8 16:38 Admitted to Med/surg accompanied by tech, family with patient, via stretcher, room 407, em with chart, Report called to DEYSI Meade 16:38 Condition: good 16:38 Instructed on the need for admit, Demonstrated understanding of instructions. 16:39 Patient left the ED. em Signatures: Dispatcher [employer] Naina Wadsworth, RN RN kal1 Francisco Jhaveri, SUPERINTENDENT INSTITUTION SUPERINTENDENT INSTITUTION em Carla Lerner aa4 Fatuma Castellon RN RN ss Woodley, Crystal cw1 Mike Alvarez PA PA jr8 Dunia Lawrence 3 Laury Alejandro formerly [facility]
[2018-03-20 15:20] LABS: Blood Morphology Comment NOT SEEN (NOT SEEN); Platelet Estimate ADEQ
[2018-03-20] MEDS ORDERED: LIDOCAINE VISCOUS 2% SOLN 15 ML UDC ONE (15:43)
[2018-03-20] MEDS ORDERED: IPRATROPIUM BROM 0.5MG/2.5ML NEB PRN (15:54)
[2018-03-20] MEDS ORDERED: ONDANSETRON 4 MG/2 ML VIAL IV PRN (15:54)
[2018-03-20] MEDS ORDERED: ALBUTEROL 2.5 MG/3 ML NEB SOL NEB PRN (15:54)
--- NOTE | 2018-03-20 16:11 | P.HP ---
Certification for Inpatient Patient admitted to: Inpatient With expected LOS: >2 Midnights Patient will require the following post-hospital care: None Practitioner: I am a practitioner with admitting privileges, knowledge of patient current condition, hospital course, and medical plan of care. Services: Services provided to patient in accordance with Admission requirements found in Title 42 Section 412.3 of the Code of Federal Regulations Patient History Date of Service: 03/20/18 Primary Care Provider: Sylvie Cornejo NP; Radiation Oncology-Dr. Morgan Reason for admission: Right lower extremity edema History of Present Illness: 62-year-old male presented to the ER with right lower extremity edema. Patient reports that this past Thursday he bumped his right knee while going to the bathroom. Since that time he has noted increasing swelling, warmth to the right lower extremity primarily around the knee and below. He has reported some mild fevers. Patient denies any significant chest pain, shortness of breath. Patient came to the ER for further evaluation. Patient with history of prostate cancer in the past with prostatectomy, hypertension, hyperlipidemia , tobacco and alcohol abuse. In the ER patient evaluated. Patient had significant edema to the right lower extremity. White count elevated at 20. Hemoglobin 12.2. Sodium 130, potassium 3.8. GFR 86. Glucose 175. Venous Doppler of the right lower extremity shows no DVT. Patient was admitted for treatment. When I saw the patient ER, pain was better controlled. Edema to the right lower extremity noted. If patient reports that he smokes about 1 pack per day. He drinks about 10 cans per day. His last drink was on Thursday. Home medications list reviewed: Yes - Past Medical/Surgical History Diabetic: No -: Hypertension -: Hyperlipidemia -: Prostate cancer with prior prostatectomy -: Tobacco abuse -: Alcohol abuse -: Prostatectomy Psychosocial/ Personal History: Patient is . He has no children. He is currently unemployed - Family History Family History: Reviewed- Non-Contributory - Social History Smoking Status: Heavy Tobacco smoker (>10 cigarettes/day) Counseled patient to stop smoking for: less than 10 minutes Smoking therapy provided: Yes Patient receptive to therapy: Yes Alcohol use: Yes CD- Drugs: No Caffeine use: Yes Place of Residence: Home Review of Systems General: Fever, As per HPI Eyes: Unremarkable ENT: Unremarkable Respiratory: Unremarkable Cardiovascular: Unremarkable Gastrointestinal: Unremarkable Genitourinary: Incontinence, As per HPI Musculoskeletal: Leg Pain, Pedal edema, As per HPI Integumentary: As per HPI Neurological: Unremarkable Lymphatics: As per HPI Physical Examination - Physical Exam General: Alert, In no apparent distress, Oriented x3, Cooperative HEENT: Atraumatic, Normocephalic, PERRLA, Mucous membr. moist/pink Neck: Supple, No Thyromegaly Respiratory: Clear to auscultation bilaterally, Normal air movement Cardiovascular: Normal pulses, Regular rate/rhythm Gastrointestinal: Normal bowel sounds, Soft and benign, Non-distended, No ascites, No tenderness, No masses, No rebound, No guarding Musculoskeletal: Other (Right lower extremity swelling especially around the knee and below the knee to the ankle region. Warmth noted. No significant breakdown of skin noted. Significant inguinal adenopathy on the right side.) Integumentary: Other (As above) Neurological: Normal speech, Normal strength at 5/5 x4 extr, Normal tone, Normal affect External genitalia: No edema, No lesions, No masses, Non-tender - Studies Laboratory Data (last 24 hrs) 03/20/18 14:16: PT 17.0 H, INR 1.44 03/20/18 14:16: Sodium 130 L, Potassium 3.8, BUN 15, Creatinine 0.90, Glucose 175 H 03/20/18 14:16: WBC 20.0 H, Hgb 12.2 L, Hct 35.3 L, Plt Count 172 Assessment and Plan - Plan Impression: Right lower extremity swelling, warmth and pain secondary to right lower extremity cellulitis with lymphangitis and inguinal lymphadenopathy History of prostate cancer with prior prostatectomy currently on Lupron injections Hypertension Hyperlipidemia Suspect COPD Tobacco abuse Alcohol abuse Hyponatremia Plan: Right lower extremity swelling, warmth and pain secondary to right lower extremity cellulitis with lymphangitis and inguinal lymphadenopathy: Will obtain blood, urine cultures. Levaquin and vancomycin IV will be initiated. Will provide medication for pain. Will monitor closely. Will check CT scan with without contrast of the abdomen and pelvis to further assess his lymphangitis and lymphadenopathy. Will consult surgery to evaluate lower extremity cellulitis. Will elevate leg when sitting or lying. Will reassess tomorrow. History of prostate cancer with prior prostatectomy currently on Lupron injections: Patient is seen by radiation oncology as an outpatient. He is expected to start radiation treatment in the near future. He is currently on Lupron. Hypertension: Will restart Norvasc. Will monitor and adjust appropriately. Hyperlipidemia: Will continue with statin medication. Will monitor closely. Suspect COPD: Suspect COPD due to his past medical history of tobacco abuse. Will start Brovana. Will provide albuterol and Atrovent nebs as needed. Tobacco abuse: Will provide nicotine patch. Alcohol abuse: Will monitor closely. Will provide Ativan as needed. Hyponatremia: Will start IV fluids. Will monitor closely. Discharge Plan: Home Plan to discharge in: 24 Hours - Advance Directives Does patient have a Living Will: No Does patient have a Durable POA for Healthcare: No - Code Status/Comfort Care Code Status Assessed: Yes (Patient full code.) Time Spent Managing Pts Care (In Minutes): 55
--- NOTE | 2018-03-20 16:40 | RAD REPORT ---
EXAM DESCRIPTION: CT - Abdomen Pelvis Wo Contrast - 03/20/2018 4:22 pm CLINICAL HISTORY: Abdominal pain prostate cancer COMPARISON: October 2016 TECHNIQUE: Computed axial tomography of the abdomen and pelvis was obtained. IV and oral contrast we re not requested. All CT scans are performed using dose optimization technique as appropriate and may include automated exposure control or mA/KV adjustment according to patient size. FINDINGS: The evaluation of solid organs, vessels and bowel is limited secondary to the lack of con trast administration. The liver,, pancreas, adrenals and kidneys appear grossly normal. Splenic calcification is unchanged The appendix is normal. There is no evidence of diverticulitis. A small right inguinal hernia is seen. Small umbilical hernia is present. Several enlarged right inguinal lymph nodes are seen. The largest measures 35 x 15 millimeters Prostatectomy has been performed IMPRESSION: Right inguinal lymphadenopathy may be neoplastic or reactive in nature
[2018-03-20 16:46] LABS: Urine Blood NEGATIVE (NEG); Urine Glucose NEGATIVE (NEG); Urine Protein 3+ (NEG); Urine Specific Gravity >1.030 (1.005-1.030); Urine pH 5.5 (5.0-7.0)
[2018-03-20] MEDS: TRAMADOL HCL 50 MG TAB PO PRN (17:44)
[2018-03-20] MEDS: NA CHLORIDE 0.9% 1,000 ML IV SCH (17:47)
[2018-03-20 18:14] LABS: Urine Bacteria <20 /HPF (NONE SEEN); Urine Culture Reflex Order REFLEXED; Urine RBC <5 /HPF (NONE SEEN)
[2018-03-20 18:15] LABS: Urine Amorphous Sediment 1+ /HPF (NONE SEEN); Urine Coarse Granular Casts >10 /LPF (NONE SEEN)
[2018-03-20] MEDS: ARFORMOTEROL TARTRATE 15 MCG/2 ML VIAL.NEB NEB SCH (20:00)
[2018-03-20] MEDS: ATORVASTATIN 10 MG TAB PO SCH (20:02)
[2018-03-20] MEDS: ENOXAPARIN 40 MG/0.4 ML SQ SCH ×2 (20:02→20:06)
[2018-03-20] MEDS: HOME MED 1 EA UNK (Ubidecarenone [Co Q-10] 100 MG) PO SCH (20:05)
[2018-03-20] MEDS ORDERED: ATORVASTATIN 40 MG TAB PO SCH (21:00)
[2018-03-20] MEDS: ACETAMINOPHEN 500 MG TAB PO PRN (23:09)
[2018-03-21] MEDS: NA CHLORIDE 0.9% 1,000 ML IV SCH ×3 (01:39→20:35)
[2018-03-21] MEDS: VANCOMYCIN 1.75 GM in NA CHLORIDE 0.9% 500 ML IVPB SCH ×2 (05:40→17:46)
[2018-03-21] MEDS: PANTOPRAZOLE 40MG TABLET PO SCH ×2 (05:41→05:45)
[2018-03-21 06:45] LABS: Absolute Lymphocytes (CBC) 0.5 K/uL (0.7-4.9); Absolute Monocytes 0.6 K/uL (0.1-1.3); Absolute Neutrophil 14.8 K/uL (1.8-8.0); Basophils % 0.2 % (0-1.3); Eosinophils % 0.9 % (0-4.4); Hematocrit 32.5 % (39.6-49.0); Lymphocytes % 2.9 % (15.3-44.8); MCH 30.9 pg (27.0-35.0); MPV 7.9 fL (7.6-11.3); Monocytes % 3.8 % (3.3-12.3); RBC Red Blood Cell Count 3.74 M/uL (4.33-5.43)
[2018-03-21 06:53] LABS: BUN Blood Urea Nitrogen 10 mg/dL (7-18); Bicarbonate 23 mmol/L (21-32); Glucose Level 95 mg/dL (74-106); Magnesium 1.9 mg/dL (1.8-2.4); Potassium 3.5 mmol/L (3.5-5.1); Sodium Level 137 mmol/L (136-145)
[2018-03-21] MEDS: ARFORMOTEROL TARTRATE 15 MCG/2 ML VIAL.NEB NEB SCH ×2 (08:00→20:00)
[2018-03-21] MEDS: ACETAMINOPHEN 500 MG TAB PO PRN ×3 (08:06→23:57)
[2018-03-21] MEDS: NICOTINE 21 MG/PAT TD SCH (08:07)
[2018-03-21] MEDS: ASPIRIN EC 81 MG TAB PO SCH (08:07)
[2018-03-21] MEDS: CALCIUM CARBONATE 500 MG TAB PO SCH (08:09)
[2018-03-21] MEDS: VITAMIN D 1000 UNIT TAB PO SCH (08:10)
[2018-03-21] MEDS: HOME MED 1 EA UNK (Ubidecarenone [Co Q-10] 100 MG) PO SCH (08:11)
[2018-03-21] MEDS: ASCORBIC ACID 1000 MG PO SCH (08:13)
--- NOTE | 2018-03-21 08:50 | P.PN ---
Subjective Date of Service: 03/21/18 Primary Care Provider: Sylvie Cornejo NP; Radiation Oncology-Dr. Morgan Chief Complaint: Right lower extremity edema Subjective: Other (Pain controlled. Swelling to the right lower extremity slightly improved.) Physical Examination - Vital Signs Temperature: 100.8 F Blood Pressure: 103/59 Pulse: 105 Respirations: 20 Pulse Ox (%): 88 - Physical Exam General: Alert, In no apparent distress, Oriented x3, Cooperative HEENT: Atraumatic Neck: Supple Respiratory: Clear to auscultation bilaterally, Normal air movement Cardiovascular: Normal pulses, Regular rate/rhythm Gastrointestinal: Normal bowel sounds, Soft and benign, Non-distended, No tenderness, No masses, No rebound, No guarding Integumentary: Other (Warmth, swelling to the right lower extremity improved. Especially around the right knee.) Neurological: Normal speech, Normal strength at 5/5 x4 extr, Normal tone Lymphatics: Inguinal lymphadenopathy (Right-sided) - Studies Laboratory Data (last 24 hrs) 03/20/18 14:16: PT 17.0 H, INR 1.44 03/20/18 14:16: Sodium 130 L, Potassium 3.8, BUN 15, Creatinine 0.90, Glucose 175 H 03/20/18 14:16: WBC 20.0 H, Hgb 12.2 L, Hct 35.3 L, Plt Count 172 Medications List Reviewed: Yes Assessment & Plan Discharge Plan: Home Plan to discharge in: Greater than 2 days Physician Review Additional Text: Impression: Right lower extremity swelling, warmth and pain secondary to right lower extremity cellulitis with lymphangitis and inguinal lymphadenopathy History of prostate cancer with prior prostatectomy currently on Lupron injections Hypertension Hyperlipidemia Suspect COPD Tobacco abuse Alcohol abuse Hyponatremia Plan: Right lower extremity swelling, warmth and pain secondary to right lower extremity cellulitis with lymphangitis and inguinal lymphadenopathy: Will continue with IV antibiotic therapy-Levaquin and vancomycin. Blood in urine culture obtained. CT scan revealed right sided inguinal lymphadenopathy likely reactive versus metastatic. Await further recommendation from surgery. Patient on DVT prophylaxis. Encourage ambulation. Will provide medication for pain. Elevate leg when sitting or lying. Will continue to reassess. Will provide incentive spirometer. History of prostate cancer with prior prostatectomy currently on Lupron injections: Patient is seen by radiation oncology as an outpatient. He is expected to start radiation treatment in the near future. He is currently on Lupron. Hypertension: Will decrease Norvasc. Will monitor and adjust appropriately. Hyperlipidemia: Will continue with statin medication. Will monitor closely. Suspect COPD: Suspect COPD due to his past medical history of tobacco abuse. Brovana started. Will provide albuterol and Atrovent nebs as needed. Tobacco abuse: Will continue with nicotine patch. Tobacco cessation addressed in detail Alcohol abuse: Will monitor closely. Will provide Ativan as needed. Alcohol cessation addressed Hyponatremia: Will continue with IV fluids. Will monitor closely. Time Spent Managing Pts Care (In Minutes): 55
[2018-03-21] MEDS ORDERED: ASCORBIC ACID 500 MG TABLET PO SCH (09:00)
[2018-03-21] MEDS ORDERED: AMLODIPINE 10 MG TAB PO SCH (09:00)
[2018-03-21] MEDS ORDERED: ASPIRIN EC 81 MG TAB PO SCH (09:00)
[2018-03-21] MEDS ORDERED: VANCOMYCIN 1 GM in NA CHLORIDE 0.9% 500 ML IVPB SCH (09:00)
[2018-03-21] MEDS ORDERED: AMLODIPINE 5 MG TAB PO SCH (11:00)
[2018-03-21] MEDS: DOXYCYCLINE 100 MG in NA CHLORIDE 0.9% 100 ML IVPB SCH ×2 (12:03→22:41)
--- NOTE | 2018-03-21 13:44 | CON ---
Date of Consultation: 03/20/2018 Reason: Cellulitis and lymphangitis in right leg. History Of Present Illness: The patient is a 62-year-old gentleman, who states that on Thursday he bumped his right knee, and since then, he has noted increased swelling in his right lower leg, mild f ever, no chills, no open wound. He does have some groin pain on the right side, and he has swelling, redness, and increasing pain. He came to the ER and was evaluated. He has some cats at the house a nd he had some fleas he states at the house, and he has a small wound on his right second toe dorsum, which he says has been there for about a week, but there is no purulent discharge. Review of Systems: Otherwise unremarkable. Past Medical History: Significant for hypertension; hyperlipidemia; and prostate cancer. Past Surgical History: Radical prostatectomy. Allergies: PENICILLIN AND IODINE. Social History: The patient states that he smokes more than 10 cigarettes a day, has been counseled, and he drinks alcohol 10 cans of beer a day, but not every day. He states that he does not have any shakes or any signs of DTs, when he stops drinking. Family History: Noncontributory. Vital Signs: Temperature is 100.8, heart rate is 105, O2 sats between 88 and 90, and blood pressure is stable. Diagnostic Data: White count was 20,000 yesterday, today 16,000 with a left shift. INR is 1.44. Chemistry is essentially unremarkable. The patient had an extremity venous study, which does not show any DVT. CT of the abdomen and pelvis shows right inguinal lymphadenopathy, may be neoplastic or reactive. Assessment: A 62-year-old gentleman with multiple medical problems with right leg cellulitis with ly mphangitis and right groin lymphadenopathy, probably secondary to the infection. Recommendations: Continue with IV antibiotics the patient is currently on. We will add doxycycline to cover for potential other rare source of infection, as he gives a history of cats and fleas in his house. There is no need for any acute surgical intervention at this time, but he does need to be mo nitored closely. I have recommended to him that he keep his leg elevated as much as possible. We wi ll follow this patient while in the hospital. /MODL Voice ID: [id number] Report ID: [id number]
[2018-03-21] MEDS ORDERED: INFLUENZA VACCINE (for 3y+) 0.5 ML DOSE IMVAC ONE (14:00)
[2018-03-21] MEDS: Levofloxacin 750mg IV 750 MG/150 ML BAG IV SCH (16:03)
[2018-03-21] MEDS: ATORVASTATIN 10 MG TAB PO SCH (20:37)
[2018-03-21] MEDS: ENOXAPARIN 40 MG/0.4 ML SQ SCH (20:38)
[2018-03-21] MEDS ORDERED: DOXYCYCLINE 100 MG in NA CHLORIDE 0.9% 100 ML IVPB SCH (21:00)
[2018-03-22] MEDS: VANCOMYCIN 1.75 GM in NA CHLORIDE 0.9% 500 ML IVPB SCH ×2 (05:32→18:42)
[2018-03-22] MEDS: PANTOPRAZOLE 40MG TABLET PO SCH (05:33)
[2018-03-22 05:59] LABS: Absolute Lymphocytes (CBC) 0.7 K/uL (0.7-4.9); Absolute Monocytes 0.9 K/uL (0.1-1.3); Absolute Neutrophil 14.5 K/uL (1.8-8.0); Basophils % 0.2 % (0-1.3); Eosinophils % 0.7 % (0-4.4); Hematocrit 31.7 % (39.6-49.0); Lymphocytes % 4.5 % (15.3-44.8); MCH 30.6 pg (27.0-35.0); MCV 87.9 fL (80-100); MPV 7.5 fL (7.6-11.3); Monocytes % 5.7 % (3.3-12.3); RBC Red Blood Cell Count 3.61 M/uL (4.33-5.43)
[2018-03-22 06:24] LABS: BUN Blood Urea Nitrogen 10 mg/dL (7-18); Bicarbonate 23 mmol/L (21-32); Glucose Level 97 mg/dL (74-106); Magnesium 2.1 mg/dL (1.8-2.4); Sodium Level 139 mmol/L (136-145)
[2018-03-22 06:28] LABS: Potassium 2.9 mmol/L (3.5-5.1)
[2018-03-22] MEDS ORDERED: KCL 20 MEQ/100 mL IVPB 20 MEQ/100 ML BAG IV SCH (08:00)
[2018-03-22] MEDS: NA CHLORIDE 0.9% 1,000 ML IV SCH (08:00)
[2018-03-22] MEDS: ARFORMOTEROL TARTRATE 15 MCG/2 ML VIAL.NEB NEB SCH ×2 (08:00→19:55)
[2018-03-22] MEDS ORDERED: POTASSIUM CL 60 MEQ in NA CHLORIDE 0.9% 500 ML IV ONE (09:00)
[2018-03-22] MEDS: CALCIUM CARBONATE 500 MG TAB PO SCH (09:00)
[2018-03-22] MEDS: NICOTINE 21 MG/PAT TD SCH (09:00)
[2018-03-22] MEDS: ASCORBIC ACID 1000 MG PO SCH (09:00)
[2018-03-22] MEDS: VITAMIN D 1000 UNIT TAB PO SCH (09:00)
[2018-03-22] MEDS: ASPIRIN EC 81 MG TAB PO SCH (09:00)
[2018-03-22] MEDS: DOXYCYCLINE 100 MG in NA CHLORIDE 0.9% 100 ML IVPB SCH ×2 (09:19→21:40)
--- NOTE | 2018-03-22 13:34 | P.PN ---
Subjective Date of Service: 03/22/18 Primary Care Provider: Sylvie Cornejo NP; Radiation Oncology-Dr. Morgan Chief Complaint: Right lower extremity edema Subjective: Other (Edema to the right lower extremity improved.) Physical Examination - Vital Signs Temperature: 99.9 F Blood Pressure: 127/72 Pulse: 86 Respirations: 18 Pulse Ox (%): 98 - Physical Exam General: Alert, In no apparent distress, Oriented x3, Cooperative HEENT: Atraumatic, Mucous membr. moist/pink Neck: Supple, No Thyromegaly Respiratory: Clear to auscultation bilaterally, Normal air movement Cardiovascular: Normal pulses, Regular rate/rhythm Gastrointestinal: Normal bowel sounds, Soft and benign, Non-distended, No tenderness, No masses, No rebound, No guarding Integumentary: Other (Edema to the right lower extremity improved. Warmth still present but improved.) Neurological: Normal speech, Normal strength at 5/5 x4 extr, Normal tone, Normal affect - Studies Medications List Reviewed: Yes Assessment & Plan Discharge Plan: Home Plan to discharge in: 72 Hours Physician Review Additional Text: Impression: Right lower extremity swelling, warmth and pain secondary to right lower extremity cellulitis with lymphangitis and inguinal lymphadenopathy History of prostate cancer with prior prostatectomy currently on Lupron injections Hypertension Hyperlipidemia Suspect COPD Tobacco abuse Alcohol abuse Hyponatremia Hypokalemia Plan: Right lower extremity swelling, warmth and pain secondary to right lower extremity cellulitis with lymphangitis and inguinal lymphadenopathy: Will continue with IV antibiotic therapy-Levaquin, doxycycline and vancomycin. Doxycycline added by surgery. Will continue to elevate leg when sitting or lying. So far cultures negative. CT scan revealed right sided inguinal lymphadenopathy likely reactive versus metastatic. Patient on DVT prophylaxis. Encourage ambulation. Will provide medication for pain. Continue ambulation as tolerated. Continue incentive spirometer. Anticipate discharge in the next 3 days. History of prostate cancer with prior prostatectomy currently on Lupron injections: Patient is seen by radiation oncology as an outpatient. He is expected to start radiation treatment in the near future. He is currently on Lupron. Hypertension: Will discontinue Norvasc due to low blood should pressure and edema. Will monitor off medication. Hyperlipidemia: Will continue with statin medication. Will monitor closely. Suspect COPD: Suspect COPD due to his past medical history of tobacco abuse. Brovana started. Will provide albuterol and Atrovent nebs as needed. Tobacco abuse: Will continue with nicotine patch. Tobacco cessation addressed in detail Alcohol abuse: Will monitor closely. Will provide Ativan as needed. Alcohol cessation addressed Hyponatremia: Improved. Will discontinue IV fluids. Will monitor closely. Hypokalemia: Will monitor and replace appropriately. Replacement protocol in place. I will turn the service over to Dr. Carranza tomorrow. I will go over the plan of care with her. Time Spent Managing Pts Care (In Minutes): 55
[2018-03-22] MEDS: ACETAMINOPHEN 500 MG TAB PO PRN (16:52)
[2018-03-22 18:37] LABS: ALT/SGPT 26 U/L (12-78); AST/SGOT 25 U/L (15-37); Albumin 1.9 g/dL (3.4-5.0); Alkaline Phosphatase 98 U/L (45-117); BUN Blood Urea Nitrogen 10 mg/dL (7-18); Bicarbonate 25 mmol/L (21-32); Bilirubin Total 0.4 mg/dL (0.2-1.0); Glucose Level 134 mg/dL (74-106); Potassium 3.1 mmol/L (3.5-5.1); Protein, Total 6.1 g/dL (6.4-8.2); Sodium Level 139 mmol/L (136-145)
[2018-03-22] MEDS: Levofloxacin 750mg IV 750 MG/150 ML BAG IV SCH (18:41)
[2018-03-22] MEDS: ATORVASTATIN 10 MG TAB PO SCH (20:54)
[2018-03-22] MEDS: ENOXAPARIN 40 MG/0.4 ML SQ SCH (20:54)
[2018-03-22] MEDS ORDERED: POTASSIUM CL SA 10 MEQ TAB PO ONE (23:39)
[2018-03-23] MEDS: LORAZEPAM 0.5 MG TABLET PO PRN (02:38)
[2018-03-23 04:21] LABS: Absolute Monocytes 1.3 K/uL (0.1-1.3); Absolute Neutrophil 10.5 K/uL (1.8-8.0); Basophils % 0.4 % (0-1.3); Hematocrit 30.1 % (39.6-49.0); Lymphocytes % 7.8 % (15.3-44.8); MCH 30.3 pg (27.0-35.0); MCV 87.2 fL (80-100); MPV 7.5 fL (7.6-11.3); Monocytes % 9.8 % (3.3-12.3); RBC Red Blood Cell Count 3.45 M/uL (4.33-5.43)
[2018-03-23 04:32] LABS: BUN Blood Urea Nitrogen 9 mg/dL (7-18); Bicarbonate 24 mmol/L (21-32); Glucose Level 99 mg/dL (74-106); Magnesium 2.1 mg/dL (1.8-2.4); Potassium 3.5 mmol/L (3.5-5.1); Sodium Level 140 mmol/L (136-145)
[2018-03-23] MEDS: PANTOPRAZOLE 40MG TABLET PO SCH (05:25)
[2018-03-23] MEDS: VANCOMYCIN 1.75 GM in NA CHLORIDE 0.9% 500 ML IVPB SCH ×3 (05:25→18:01)
[2018-03-23] MEDS ORDERED: POTASSIUM CL SA 10 MEQ TAB PO ONE (05:50)
[2018-03-23] MEDS: ARFORMOTEROL TARTRATE 15 MCG/2 ML VIAL.NEB NEB SCH ×2 (08:00→20:00)
[2018-03-23] MEDS: ASPIRIN EC 81 MG TAB PO SCH (08:02)
[2018-03-23] MEDS: NICOTINE 21 MG/PAT TD SCH (08:02)
[2018-03-23] MEDS: ASCORBIC ACID 1000 MG PO SCH (08:02)
[2018-03-23] MEDS: CALCIUM CARBONATE 500 MG TAB PO SCH (08:02)
[2018-03-23] MEDS: VITAMIN D 1000 UNIT TAB PO SCH (08:03)
[2018-03-23] MEDS: DOXYCYCLINE 100 MG in NA CHLORIDE 0.9% 100 ML IVPB SCH ×3 (09:00→21:25)
[2018-03-23] MEDS: SILVER SULFADIAZINE 1% 50 GM TOP SCH (12:54)
--- NOTE | 2018-03-23 14:39 | P.PN ---
Subjective Date of Service: 03/23/18 Primary Care Provider: Sylvie Cornejo NP; Radiation Oncology-Dr. Morgan Chief Complaint: Right lower extremity edema Patient seen and examined at bedside with RN. Chart reviewed. Case discussed with family and patient at bedside. Currently right leg cellulitis is not showing any improvement. Patient states that the swelling and the redness is similar to yesterday. Patient however does seem to be not elevating his leg and has been going down to smoke. Patient educated extensively on the importance of elevation of legs smoking at this time. Patient demonstrated understanding Review of Systems 10-point ROS is otherwise unremarkable Physical Examination - Vital Signs Temperature: 98.7 F Blood Pressure: 128/77 Pulse: 87 Respirations: 16 Pulse Ox (%): 96 - Physical Exam General: Alert, In no apparent distress HEENT: Atraumatic, PERRLA, EOMI Neck: Supple, JVD not distended Respiratory: Clear to auscultation bilaterally, Normal air movement Cardiovascular: Regular rate/rhythm, Normal S1 S2 Gastrointestinal: Normal bowel sounds, No tenderness Musculoskeletal: No tenderness Integumentary: Skin lesion (Right leg lower cellulitis noted with erythema and several boils and the anterior aspect of the keller noted as well.), Tenderness/ swelling, Erythema, Warmth Neurological: Normal speech, Normal tone, Normal affect Lymphatics: No axilla or inguinal lymphadenopathy - Studies Medications List Reviewed: Yes Assessment And Plan - Current Problems (Diagnosis) (1) Cellulitis of right lower extremity Onset Date: 03/23/18 Current Visit: Yes Status: Acute Plan: Right leg lower extremity cellulitis -Will continue with IV antibiotic therapy-Levaquin, doxycycline and vancomycin -Will continue to elevate leg when sitting or lying. So far cultures negative. -CT scan revealed right sided inguinal lymphadenopathy likely reactive -smoking cessation provided as well. (2) Inguinal lymphadenopathy Onset Date: 03/23/18 Current Visit: Yes Status: Acute Plan: Inguinal lymphadenopathy -cat scratch disease cannot be ruled out. Patient does have cats that he says that has scratched the area of the wound couple of weeks ago -on doxycycline at this time (3) Hyperlipidemia Onset Date: 03/23/18 Current Visit: Yes Status: Chronic Qualifiers: Hyperlipidemia type: mixed hyperlipidemia Qualified Code(s): E78.2 - Mixed hyperlipidemia (4) Hypertension Onset Date: 03/23/18 Current Visit: Yes Status: Chronic Qualifiers: Hypertension type: essential hypertension Qualified Code(s): I10 - Essential (primary) hypertension (5) Tobacco abuse Onset Date: 03/23/18 Current Visit: Yes Status: Chronic (6) Alcohol abuse Onset Date: 03/23/18 Current Visit: Yes Status: Chronic - Plan Currently pending clinical improvement at this time Discharge Plan: Home Plan to discharge in: 48 Hours - Code Status/Comfort Care Code Status Assessed: Yes Critical Care: No
--- NOTE | 2018-03-23 15:20 | PN ---
Date of Progress Note: 03/23/2018 Subjective: The patient is awake, alert. No new complaint. Vital signs stable. Afebrile. White c ount is decreasing to 13,000. Examination of the right leg reveals marked ecchymosis and erythema. Below the skin, there are some blisters, which were debrided with gauze. Cultures were ordered. The re is no abscess or any evidence of abscess, woody induration, or any other thing to indicate necroti zing fasciitis. I think it is just a very bad cellulitis. Assessment: Cellulitis, lymphangitis, right lower extremity. Recommendation: The patient will need long-term antibiotics for least a couple weeks, therefore we w ill order a PICC line. I will discuss with Dr. Carranza regarding, which antibiotics patient will requi re, and once we stabilize the situation clinically, the patient will be okay for discharge. At this time, over the last 48 hours, however, his leg has gotten worse. We need to keep a close eye on this patient. GEREMIAS/KINA Voice ID: [id number] Report ID: [id number]
[2018-03-23] MEDS: Levofloxacin 750mg IV 750 MG/150 ML BAG IV SCH ×2 (16:41→18:01)
[2018-03-23] MEDS: ACETAMINOPHEN 500 MG TAB PO PRN (18:01)
[2018-03-23] MEDS: ENOXAPARIN 40 MG/0.4 ML SQ SCH (21:00)
[2018-03-23] MEDS: ATORVASTATIN 10 MG TAB PO SCH (21:00)
[2018-03-24] MEDS: LORAZEPAM 0.5 MG TABLET PO PRN (01:21)
[2018-03-24] MEDS: VANCOMYCIN 1.75 GM in NA CHLORIDE 0.9% 500 ML IVPB SCH ×2 (04:33→16:51)
[2018-03-24 04:39] LABS: Urine Appearance CLEAR; Urine Bilirubin NEGATIVE (NEG); Urine Blood NEGATIVE (NEG); Urine Color YELLOW; Urine Glucose NEGATIVE (NEG); Urine Protein NEGATIVE (NEG); Urine Specific Gravity 1.015 (1.005-1.030)
[2018-03-24 04:45] LABS: Urine Microscopic Reflex NO UMIC
[2018-03-24] MEDS: PANTOPRAZOLE 40MG TABLET PO SCH (05:04)
[2018-03-24 05:46] LABS: BUN Blood Urea Nitrogen 9 mg/dL (7-18); Bicarbonate 26 mmol/L (21-32); Glucose Level 98 mg/dL (74-106); Potassium 3.3 mmol/L (3.5-5.1); Sodium Level 138 mmol/L (136-145)
[2018-03-24] MEDS: ARFORMOTEROL TARTRATE 15 MCG/2 ML VIAL.NEB NEB SCH ×2 (08:00→20:00)
--- NOTE | 2018-03-24 08:14 | RAD REPORT ---
EXAM DESCRIPTION: RAD - Chest Single View - 03/23/2018 11:37 pm CLINICAL HISTORY: Device placement PICC line placement COMPARISON: One thousand twelve FINDINGS: A PICC line has been inserted with its tip in the mid superior vena cava. The lungs appear clear of acute infiltrate. The heart is normal size. IMPRESSION: PICC line with its tip in the mid superior vena cava
[2018-03-24] MEDS ORDERED: POTASSIUM CL SA 10 MEQ TAB PO ONE ×2 (09:00→17:00)
[2018-03-24] MEDS: ASPIRIN EC 81 MG TAB PO SCH (09:00)
[2018-03-24] MEDS: NICOTINE 21 MG/PAT TD SCH (09:00)
[2018-03-24] MEDS: VITAMIN D 1000 UNIT TAB PO SCH (09:00)
[2018-03-24] MEDS: ASCORBIC ACID 1000 MG PO SCH (09:00)
[2018-03-24] MEDS: CALCIUM CARBONATE 500 MG TAB PO SCH (09:00)
[2018-03-24] MEDS: SILVER SULFADIAZINE 1% 50 GM TOP SCH (09:10)
[2018-03-24] MEDS: DOXYCYCLINE 100 MG in NA CHLORIDE 0.9% 100 ML IVPB SCH ×2 (09:17→21:48)
[2018-03-24] MEDS ORDERED: HYDROMORPHONE HCL 0.5 MG/0.5 ML INJ IV ONE (10:30)
--- NOTE | 2018-03-24 12:17 | P.PN ---
Subjective Date of Service: 03/24/18 Primary Care Provider: Sylvie Cornejo NP; Radiation Oncology-Dr. Morgan Chief Complaint: Right lower extremity edema Patient seen and examined at bedside with RN. Chart reviewed. Case discussed with family and patient at bedside. Currently right leg cellulitis is showing minimal improvement. The patient had a PICC line placed yesterday per surgery' s recommendations for long-term IV antibiotics. Review of Systems 10-point ROS is otherwise unremarkable Physical Examination - Vital Signs Temperature: 97.3 F Blood Pressure: 134/78 Pulse: 86 Respirations: 16 Pulse Ox (%): 93 - Physical Exam General: Alert, In no apparent distress HEENT: Atraumatic, PERRLA, EOMI Neck: Supple, JVD not distended Respiratory: Clear to auscultation bilaterally, Normal air movement Cardiovascular: Regular rate/rhythm, Normal S1 S2 Gastrointestinal: Normal bowel sounds, No tenderness Musculoskeletal: Erythema, Tenderness, Warmth, Other (Right leg cellulitis. Rupture boil. Purulent discharge noted. Erythema improved. Swelling and tenderness still present.) Integumentary: No rashes Neurological: Normal speech, Normal tone, Normal affect Lymphatics: No axilla or inguinal lymphadenopathy - Studies Medications List Reviewed: Yes Assessment And Plan - Current Problems (Diagnosis) (1) Cellulitis of right lower extremity Onset Date: 03/23/18 Current Visit: Yes Status: Acute Plan: Right leg lower extremity cellulitis -Will continue with IV antibiotic therapy-Levaquin, doxycycline and vancomycin -Will continue to elevate leg when sitting or lying. So far cultures negative. -CT scan revealed right sided inguinal lymphadenopathy likely reactive -smoking cessation provided as well. -surgery consulted. Appreciated recommendations at this time -PICC line placement for long-term IV antibiotics -wound care daily -will also get MRI of the lower extremity to rule out any osteomyelitis (2) Inguinal lymphadenopathy Onset Date: 03/23/18 Current Visit: Yes Status: Acute Plan: Inguinal lymphadenopathy -cat scratch disease cannot be ruled out. -Patient does have cats that he says that has scratched the area of the wound couple of weeks ago -on doxycycline at this time (3) Hyperlipidemia Onset Date: 03/23/18 Current Visit: Yes Status: Chronic Qualifiers: Hyperlipidemia type: mixed hyperlipidemia Qualified Code(s): E78.2 - Mixed hyperlipidemia (4) Hypertension Onset Date: 03/23/18 Current Visit: Yes Status: Chronic Qualifiers: Hypertension type: essential hypertension Qualified Code(s): I10 - Essential (primary) hypertension (5) Tobacco abuse Onset Date: 03/23/18 Current Visit: Yes Status: Chronic (6) Alcohol abuse Onset Date: 03/23/18 Current Visit: Yes Status: Chronic - Plan Currently pending clinical improvement at this time. Will need placement in assisted facility versus long-term acute care once ready for discharge for long-term antibiotic Discharge Plan: Other
--- NOTE | 2018-03-24 13:24 | PN ---
Date of Progress Note: 03/24/2018 Subjective: The patient is awake and alert, feels better. Right leg examined and shows the edema to be better and there is some wrinkling of the skin, however, there is some more blistering, which was debrided with gauze. The redness has not gotten worse. The warmth is less. Assessment: Right lower extremity cellulitis and lymphangitis. Recommendations: Continue IV antibiotics. Check cultures. A PICC line is in place. The patient wi ll need vancomycin at least for 2 weeks and doxycycline. Once the patient is clinically stable, we c an arrange for discharge with outpatient IV antibiotics and oral tetracycline. /MODL Voice ID: [id number] Report ID: [id number]
--- NOTE | 2018-03-24 14:44 | RAD REPORT ---
EXAM DESCRIPTION: MRI - Tib Fib Right Wo Cont - 03/24/2018 2:32 pm CLINICAL HISTORY: CELLULITIS ON THE RIGHT LEG AND FOOT COMPARISON: Foot Right Wo Cont dated 03/24/2018; Extremity Venous Uni Ltd dated 03/20/2018; Abdomen Pelvis Wo Contrast dated 03/20/2018 FINDINGS: MRI of the right tibia/ fibula and right foot without contrast was performed. The Achilles tendon and plantar fascia are intact. The plantar arch of the foot is maintained. No fracture, dislocation or aggressive bony lesion is detected. No marrow replacing process is observ ed to suggest osteomyelitis. Significant subcutaneous edema and fluid is present involving the lower leg. Edema is also present in several of the calf muscles. No drainable fluid collection. Lack of IV contrast material limits assessment for fasciitis. IMPRESSION: Significant findings of soft tissue infection/ cellulitis of seen throughout the leg. Ea rly myositis is also suspected with mild edema signal within several of the muscles of the lower leg. There is no drainable abscess seen. There is no evidence of osteomyelitis.
[2018-03-24] MEDS: Levofloxacin 750mg IV 750 MG/150 ML BAG IV SCH (16:40)
[2018-03-24] MEDS: ATORVASTATIN 10 MG TAB PO SCH (21:00)
[2018-03-24] MEDS: ENOXAPARIN 40 MG/0.4 ML SQ SCH (21:00)
[2018-03-25] MEDS: VANCOMYCIN 1.75 GM in NA CHLORIDE 0.9% 500 ML IVPB SCH ×2 (05:06→16:39)
[2018-03-25] MEDS: PANTOPRAZOLE 40MG TABLET PO SCH (05:06)
[2018-03-25 05:54] LABS: BUN Blood Urea Nitrogen 8 mg/dL (7-18); Bicarbonate 29 mmol/L (21-32); Glucose Level 109 mg/dL (74-106); Potassium 3.6 mmol/L (3.5-5.1); Sodium Level 141 mmol/L (136-145)
[2018-03-25] MEDS: ARFORMOTEROL TARTRATE 15 MCG/2 ML VIAL.NEB NEB SCH ×2 (08:00→20:00)
[2018-03-25] MEDS: VITAMIN D 1000 UNIT TAB PO SCH (09:00)
[2018-03-25] MEDS ORDERED: POTASSIUM CL SA 10 MEQ TAB PO ONE (09:00)
[2018-03-25] MEDS: NICOTINE 21 MG/PAT TD SCH (09:00)
[2018-03-25] MEDS: CALCIUM CARBONATE 500 MG TAB PO SCH (09:00)
[2018-03-25] MEDS: DOXYCYCLINE 100 MG in NA CHLORIDE 0.9% 100 ML IVPB SCH ×2 (09:57→20:11)
[2018-03-25] MEDS: ASCORBIC ACID 1000 MG PO SCH (10:03)
[2018-03-25] MEDS: ASPIRIN EC 81 MG TAB PO SCH ×2 (10:07→15:00)
[2018-03-25] MEDS: TRAMADOL HCL 50 MG TAB PO PRN (10:12)
--- NOTE | 2018-03-25 13:01 | P.PN ---
Subjective Date of Service: 03/25/18 Primary Care Provider: Sylvie Corenjo NP; Radiation Oncology-Dr. Morgan Chief Complaint: Right lower extremity edema Patient seen and examined at bedside with RN. Chart reviewed. Case discussed with family and patient at bedside. Currently right leg cellulitis is showing minimal improvement. The patient had a PICC line placed per surgery's recommendations for long-term IV antibiotics. Review of Systems 10-point ROS is otherwise unremarkable Physical Examination - Vital Signs Temperature: 98 F Blood Pressure: 110/93 Pulse: 87 Respirations: 79 Pulse Ox (%): 93 - Physical Exam General: Alert, In no apparent distress HEENT: Atraumatic, PERRLA, EOMI Neck: Supple, JVD not distended Respiratory: Clear to auscultation bilaterally, Normal air movement Cardiovascular: Regular rate/rhythm, Normal S1 S2 Gastrointestinal: Normal bowel sounds, No tenderness Musculoskeletal: Erythema, Tenderness, Warmth Integumentary: No rashes Lymphatics: No axilla or inguinal lymphadenopathy - Studies Medications List Reviewed: Yes Assessment And Plan - Current Problems (Diagnosis) (1) Cellulitis of right lower extremity Onset Date: 03/23/18 Current Visit: Yes Status: Acute Plan: Right leg lower extremity cellulitis with Myosititis -Will continue with IV antibiotic therapy- levaquin, doxycycline and vancomycin -Will continue to elevate leg when sitting or lying. So far cultures negative. -MRI leg with Myositis and soft tissue swelling without abscess and Osteomylitis -CT pelvis scan revealed right sided inguinal lymphadenopathy likely reactive -smoking cessation provided as well. -surgery consulted. Appreciated recommendations at this time -PICC line placement for long-term IV antibiotics -wound care daily (2) Inguinal lymphadenopathy Onset Date: 03/23/18 Current Visit: Yes Status: Acute Plan: Inguinal lymphadenopathy -cat scratch disease cannot be ruled out. -Patient does have cats that he says that has scratched the area of the wound couple of weeks ago -on doxycycline at this time (3) Hyperlipidemia Onset Date: 03/23/18 Current Visit: Yes Status: Chronic Qualifiers: Hyperlipidemia type: mixed hyperlipidemia Qualified Code(s): E78.2 - Mixed hyperlipidemia (4) Hypertension Onset Date: 03/23/18 Current Visit: Yes Status: Chronic Qualifiers: Hypertension type: essential hypertension Qualified Code(s): I10 - Essential (primary) hypertension (5) Tobacco abuse Onset Date: 03/23/18 Current Visit: Yes Status: Chronic (6) Alcohol abuse Onset Date: 03/23/18 Current Visit: Yes Status: Chronic - Plan Currently pending clinical improvement at this time. Will need placement in snf facility versus long-term acute care once ready for discharge for long-term antibiotic and daily wound care for extensive wound Discharge Plan: Other Plan to discharge in: 48 Hours - Code Status/Comfort Care Code Status Assessed: Yes Critical Care: No
[2018-03-25] MEDS: HYDROCODONE/APAP 7.5/325 MG TAB PO PRN (15:00)
[2018-03-25] MEDS ORDERED: HYDROMORPHONE HCL 0.5 MG/0.5 ML INJ IV ONE (16:00)
--- NOTE | 2018-03-25 16:16 | PN ---
Date of Progress Note: 03/25/2018 Subjective: The patient is awake and alert, feels better. Had an MRI done yesterday, which was nega tive for osteo, just myositis. Cultures reviewed. There is skin shelly. Objective: Vital Signs: Stable. Afebrile. Extremities: Examination of the wound reveals decrease in the edema. Marked erythema is present and no further blistering noted and no purulent discharge. Assessment: Right lower extremity cellulitis and myositis with open wounds. Recommendation: Silvadene for the wounds, vancomycin and doxycycline as ordered. Discharge planning in progress. /MODL Voice ID: [id number] Report ID: [id number]
[2018-03-25] MEDS: SILVER SULFADIAZINE 1% 50 GM TOP SCH (16:31)
[2018-03-25] MEDS: ATORVASTATIN 10 MG TAB PO SCH (20:10)
[2018-03-25] MEDS: ENOXAPARIN 40 MG/0.4 ML SQ SCH (20:11)
[2018-03-26] MEDS: VANCOMYCIN 1.75 GM in NA CHLORIDE 0.9% 500 ML IVPB SCH ×2 (05:44→18:02)
[2018-03-26] MEDS: PANTOPRAZOLE 40MG TABLET PO SCH (05:47)
[2018-03-26] MEDS: ARFORMOTEROL TARTRATE 15 MCG/2 ML VIAL.NEB NEB SCH ×2 (08:00→20:00)
[2018-03-26 08:25] LABS: BUN Blood Urea Nitrogen 9 mg/dL (7-18); Bicarbonate 27 mmol/L (21-32); Glucose Level 109 mg/dL (74-106); Magnesium 2.4 mg/dL (1.8-2.4); Potassium 3.8 mmol/L (3.5-5.1); Sodium Level 139 mmol/L (136-145)
[2018-03-26 08:28] LABS: Absolute Lymphocytes (CBC) 1.8 K/uL (0.7-4.9); Absolute Monocytes 0.9 K/uL (0.1-1.3); Absolute Neutrophil 9.9 K/uL (1.8-8.0); Basophils % 0.3 % (0-1.3); Eosinophils % 2.9 % (0-4.4); Hematocrit 33.8 % (39.6-49.0); Lymphocytes % 13.6 % (15.3-44.8); MCH 30.1 pg (27.0-35.0); MCV 87.7 fL (80-100); Monocytes % 7.1 % (3.3-12.3); RBC Red Blood Cell Count 3.86 M/uL (4.33-5.43)
[2018-03-26] MEDS: HYDROCODONE/APAP 7.5/325 MG TAB PO PRN (08:48)
[2018-03-26] MEDS: ASPIRIN EC 81 MG TAB PO SCH ×2 (08:49→08:51)
[2018-03-26] MEDS: NICOTINE 21 MG/PAT TD SCH (08:50)
[2018-03-26] MEDS: CALCIUM CARBONATE 500 MG TAB PO SCH (08:50)
[2018-03-26] MEDS: VITAMIN D 1000 UNIT TAB PO SCH (08:50)
[2018-03-26] MEDS: SILVER SULFADIAZINE 1% 50 GM TOP SCH (08:50)
[2018-03-26] MEDS: ASCORBIC ACID 1000 MG PO SCH (08:51)
[2018-03-26] MEDS: DOXYCYCLINE 100 MG in NA CHLORIDE 0.9% 100 ML IVPB SCH ×2 (10:50→21:33)
[2018-03-26] MEDS ORDERED: ALTEPLASE 2 MG/VIAL IV SCH (12:00)
[2018-03-26 13:04] VITALS: BMI 31.1
--- NOTE | 2018-03-26 13:53 | PN ---
Date of Progress Note: 03/26/2018 Subjective: The patient is awake and alert. He states that he has not had any pain when he is lying down; however, when he walks he has excruciating pain in the right leg. Objective: Vital Signs: His vital signs are stable. He is afebrile. Laboratory Data: His white count was 13.1 this morning. Examination of the right leg reveals a angelito le decrease in the swelling. He does still have a lot of slough that needs debridement. He does sti ll have erythema and tenderness. Assessment: Right leg cellulitis with myositis. Recommendation: Wound care is ordered, IV antibiotics, discharge planning in progress. The patient will probably most likely go to custodial for continued IV antibiotic therapy. GEREMIAS/MODL Voice ID: [id number] Report ID: [id number]
--- NOTE | 2018-03-26 13:57 | P.PN ---
Subjective Date of Service: 03/26/18 Primary Care Provider: Sylvie Cornejo NP; Radiation Oncology-Dr. Morgan Chief Complaint: Right lower extremity edema Patient seen and examined at bedside with RN. Chart reviewed. Case discussed with family and patient at bedside. Currently right leg cellulitis is showing minimal improvement. The patient had a PICC line placed per surgery's recommendations for long-term IV antibiotics. Review of Systems 10-point ROS is otherwise unremarkable Physical Examination - Vital Signs Temperature: 97.4 F Blood Pressure: 113/66 Pulse: 75 Respirations: 18 Pulse Ox (%): 95 - Physical Exam General: Alert, In no apparent distress HEENT: Atraumatic, PERRLA, EOMI Neck: Supple, JVD not distended Respiratory: Clear to auscultation bilaterally, Normal air movement Cardiovascular: Regular rate/rhythm, Normal S1 S2 Gastrointestinal: Normal bowel sounds, No tenderness Musculoskeletal: No tenderness Integumentary: Tenderness/swelling, Erythema, Warmth Neurological: Normal speech, Normal tone, Normal affect Lymphatics: No axilla or inguinal lymphadenopathy - Studies Microbiology Data (last 24 hrs): 03/20/18 14:33 Blood - Blood Aerobic Blood Culture - Final No growth in 5 days. 03/20/18 14:33 Blood - Blood Anaerobic Blood Culture - Final No growth in 5 days. 03/20/18 14:16 Blood - Blood Aerobic Blood Culture - Final No growth in 5 days. 03/20/18 14:16 Blood - Blood Anaerobic Blood Culture - Final No growth in 5 days. Medications List Reviewed: Yes Assessment And Plan - Current Problems (Diagnosis) (1) Cellulitis of right lower extremity Onset Date: 03/23/18 Current Visit: Yes Status: Acute Plan: Right leg lower extremity cellulitis with Myosititis -Will continue with IV antibiotic therapy- doxycycline and vancomycin -Will continue to elevate leg when sitting or lying. So far cultures negative. -MRI leg with Myositis and soft tissue swelling without abscess and Osteomylitis -CT pelvis scan revealed right sided inguinal lymphadenopathy likely reactive -smoking cessation provided as well. -surgery consulted. Appreciated recommendations at this time -PICC line placement for long-term IV antibiotics -wound care daily (2) Inguinal lymphadenopathy Onset Date: 03/23/18 Current Visit: Yes Status: Acute Plan: Inguinal lymphadenopathy -cat scratch disease cannot be ruled out. -Patient does have cats that he says that has scratched the area of the wound couple of weeks ago -on doxycycline at this time (3) Hyperlipidemia Onset Date: 03/23/18 Current Visit: Yes Status: Chronic Qualifiers: Hyperlipidemia type: mixed hyperlipidemia Qualified Code(s): E78.2 - Mixed hyperlipidemia (4) Hypertension Onset Date: 03/23/18 Current Visit: Yes Status: Chronic Qualifiers: Hypertension type: essential hypertension Qualified Code(s): I10 - Essential (primary) hypertension (5) Tobacco abuse Onset Date: 03/23/18 Current Visit: Yes Status: Chronic (6) Alcohol abuse Onset Date: 03/23/18 Current Visit: Yes Status: Chronic - Plan Currently pending clinical improvement at this time. Will need placement in senior living facility versus long-term acute care once ready for discharge for long-term antibiotic and daily wound care for extensive wound Discharge Plan: [facility] Plan to discharge in: 48 Hours - Code Status/Comfort Care Code Status Assessed: Yes Critical Care: No
[2018-03-26] MEDS ORDERED: WATER FOR INJ,STERILE 10 ML IV SCH (14:00)
[2018-03-26] MEDS: ENOXAPARIN 40 MG/0.4 ML SQ SCH (21:00)
[2018-03-26] MEDS ORDERED: POTASSIUM CL SA 10 MEQ TAB PO ONE (21:00)
[2018-03-26] MEDS: ATORVASTATIN 10 MG TAB PO SCH (21:34)
[2018-03-27] MEDS: VANCOMYCIN 1.75 GM in NA CHLORIDE 0.9% 500 ML IVPB SCH ×2 (05:54→16:21)
[2018-03-27] MEDS: PANTOPRAZOLE 40MG TABLET PO SCH (05:55)
[2018-03-27 06:34] LABS: BUN Blood Urea Nitrogen 10 mg/dL (7-18); Bicarbonate 28 mmol/L (21-32); Glucose Level 127 mg/dL (74-106); Potassium 3.6 mmol/L (3.5-5.1); Sodium Level 141 mmol/L (136-145)
[2018-03-27] MEDS: ARFORMOTEROL TARTRATE 15 MCG/2 ML VIAL.NEB NEB SCH ×2 (08:00→20:00)
[2018-03-27] MEDS: ASPIRIN EC 81 MG TAB PO SCH (08:54)
[2018-03-27] MEDS ORDERED: POTASSIUM 25 MEQ EFFERV TAB PO ONE (09:00)
[2018-03-27] MEDS: NICOTINE 21 MG/PAT TD SCH (09:00)
[2018-03-27] MEDS: VITAMIN D 1000 UNIT TAB PO SCH (09:00)
[2018-03-27] MEDS: CALCIUM CARBONATE 500 MG TAB PO SCH (09:00)
[2018-03-27] MEDS: ASCORBIC ACID 1000 MG PO SCH (09:01)
[2018-03-27] MEDS: SILVER SULFADIAZINE 1% 50 GM TOP SCH (09:02)
[2018-03-27] MEDS: DOXYCYCLINE 100 MG in NA CHLORIDE 0.9% 100 ML IVPB SCH ×2 (09:48→20:31)
--- NOTE | 2018-03-27 11:56 | P.PN ---
Subjective Date of Service: 03/27/18 Primary Care Provider: Sylvie Cornejo NP; Radiation Oncology-Dr. Morgan Chief Complaint: Right lower extremity edema Patient seen and examined at bedside with RN. Chart reviewed. Case discussed with family and patient at bedside. Currently right leg cellulitis is showing improvement. The patient had a PICC line placed per surgery's recommendations for long-term IV antibiotics. Review of Systems 10-point ROS is otherwise unremarkable Physical Examination - Vital Signs Temperature: 97.6 F Blood Pressure: 112/66 Pulse: 76 Respirations: 18 Pulse Ox (%): 97 - Physical Exam General: Alert, In no apparent distress HEENT: Atraumatic, PERRLA, EOMI Neck: Supple, JVD not distended Respiratory: Clear to auscultation bilaterally, Normal air movement Cardiovascular: Regular rate/rhythm, Normal S1 S2 Gastrointestinal: Normal bowel sounds, No tenderness Musculoskeletal: Swelling, Erythema, Tenderness, Warmth Integumentary: Skin breakdown, Skin lesion Neurological: Normal speech, Normal tone, Normal affect Lymphatics: No axilla or inguinal lymphadenopathy - Studies Medications List Reviewed: Yes Assessment And Plan - Current Problems (Diagnosis) (1) Cellulitis of right lower extremity Onset Date: 03/23/18 Current Visit: Yes Status: Acute Plan: Right leg lower extremity cellulitis with Myosititis -Will continue with IV antibiotic therapy- doxycycline and vancomycin -Will continue to elevate leg when sitting or lying. So far cultures negative. -MRI leg with Myositis and soft tissue swelling without abscess and Osteomylitis -CT pelvis scan revealed right sided inguinal lymphadenopathy likely reactive -smoking cessation provided as well. -surgery consulted. Appreciated recommendations at this time -PICC line placement for long-term IV antibiotics -wound care daily (2) Inguinal lymphadenopathy Onset Date: 03/23/18 Current Visit: Yes Status: Acute Plan: Inguinal lymphadenopathy -cat scratch disease cannot be ruled out. -Patient does have cats that he says that has scratched the area of the wound couple of weeks ago -on doxycycline at this time (3) Hyperlipidemia Onset Date: 03/23/18 Current Visit: Yes Status: Chronic Qualifiers: Hyperlipidemia type: mixed hyperlipidemia Qualified Code(s): E78.2 - Mixed hyperlipidemia (4) Hypertension Onset Date: 03/23/18 Current Visit: Yes Status: Chronic Qualifiers: Hypertension type: essential hypertension Qualified Code(s): I10 - Essential (primary) hypertension (5) Tobacco abuse Onset Date: 03/23/18 Current Visit: Yes Status: Chronic (6) Alcohol abuse Onset Date: 03/23/18 Current Visit: Yes Status: Chronic - Plan Currently pending clinical improvement at this time. Will need placement in long term facility versus long-term acute care once ready for discharge for long-term antibiotic and daily wound care for extensive wound Discharge Plan: Other Plan to discharge in: 48 Hours - Code Status/Comfort Care Code Status Assessed: Yes Critical Care: No
[2018-03-27] MEDS: ACETAMINOPHEN 500 MG TAB PO PRN (13:21)
[2018-03-27] MEDS: ENOXAPARIN 40 MG/0.4 ML SQ SCH (20:13)
[2018-03-27] MEDS: ATORVASTATIN 10 MG TAB PO SCH (20:31)
[2018-03-28] MEDS ORDERED: ALTEPLASE 2 MG/VIAL IV SCH (04:00)
[2018-03-28] MEDS: PANTOPRAZOLE 40MG TABLET PO SCH (05:29)
[2018-03-28 05:40] LABS: BUN Blood Urea Nitrogen 11 mg/dL (7-18); Bicarbonate 28 mmol/L (21-32); Glucose Level 102 mg/dL (74-106); Potassium 3.8 mmol/L (3.5-5.1); Sodium Level 140 mmol/L (136-145)
[2018-03-28] MEDS ORDERED: POTASSIUM CL SA 10 MEQ TAB PO ONE (05:46)
[2018-03-28] MEDS: VANCOMYCIN 1.75 GM in NA CHLORIDE 0.9% 500 ML IVPB SCH ×2 (05:57→16:57)
[2018-03-28] MEDS: ARFORMOTEROL TARTRATE 15 MCG/2 ML VIAL.NEB NEB SCH ×2 (08:00→20:00)
[2018-03-28] MEDS: NICOTINE 21 MG/PAT TD SCH (09:00)
[2018-03-28] MEDS: VITAMIN D 1000 UNIT TAB PO SCH ×2 (09:00→20:43)
[2018-03-28] MEDS: CALCIUM CARBONATE 500 MG TAB PO SCH ×2 (09:00→20:41)
[2018-03-28] MEDS: ASCORBIC ACID 1000 MG PO SCH ×2 (09:00→20:42)
[2018-03-28] MEDS: ASPIRIN EC 81 MG TAB PO SCH (09:00)
[2018-03-28] MEDS: DOXYCYCLINE 100 MG in NA CHLORIDE 0.9% 100 ML IVPB SCH ×2 (09:40→20:48)
--- NOTE | 2018-03-28 14:23 | P.PN ---
Subjective Date of Service: 03/28/18 Primary Care Provider: Sylvie Cornejo NP; Radiation Oncology-Dr. Morgan Chief Complaint: Right lower extremity edema Patient seen and examined at bedside with RN. Chart reviewed. Case discussed with family and patient at bedside. Currently right leg cellulitis is showing improvement. The patient had a PICC line placed per surgery's recommendations for long-term IV antibiotics. Review of Systems 10-point ROS is otherwise unremarkable Physical Examination - Vital Signs Temperature: 99.0 F Blood Pressure: 98/61 Pulse: 78 Respirations: 16 Pulse Ox (%): 97 - Physical Exam General: Alert, In no apparent distress HEENT: Atraumatic, PERRLA, EOMI Neck: Supple, JVD not distended Respiratory: Clear to auscultation bilaterally, Normal air movement Cardiovascular: Regular rate/rhythm, Normal S1 S2 Gastrointestinal: Normal bowel sounds, No tenderness Musculoskeletal: Erythema, Tenderness, Warmth Integumentary: No rashes Neurological: Normal speech, Normal tone, Normal affect Lymphatics: No axilla or inguinal lymphadenopathy - Studies Medications List Reviewed: Yes Assessment And Plan - Current Problems (Diagnosis) (1) Cellulitis of right lower extremity Onset Date: 03/23/18 Current Visit: Yes Status: Acute Plan: Right leg lower extremity cellulitis with Myosititis -Will continue with IV antibiotic therapy- doxycycline and vancomycin -Will continue to elevate leg when sitting or lying. So far cultures negative. -MRI leg with Myositis and soft tissue swelling without abscess and Osteomylitis -CT pelvis scan revealed right sided inguinal lymphadenopathy likely reactive -smoking cessation provided as well. -surgery consulted. Appreciated recommendations at this time -PICC line placement for long-term IV antibiotics -wound care daily (2) Inguinal lymphadenopathy Onset Date: 03/23/18 Current Visit: Yes Status: Acute Plan: Inguinal lymphadenopathy -cat scratch disease cannot be ruled out. -Patient does have cats that he says that has scratched the area of the wound couple of weeks ago -on doxycycline at this time (3) Hyperlipidemia Onset Date: 03/23/18 Current Visit: Yes Status: Chronic Qualifiers: Hyperlipidemia type: mixed hyperlipidemia Qualified Code(s): E78.2 - Mixed hyperlipidemia (4) Hypertension Onset Date: 03/23/18 Current Visit: Yes Status: Chronic Qualifiers: Hypertension type: essential hypertension Qualified Code(s): I10 - Essential (primary) hypertension (5) Tobacco abuse Onset Date: 03/23/18 Current Visit: Yes Status: Chronic (6) Alcohol abuse Onset Date: 03/23/18 Current Visit: Yes Status: Chronic - Plan Currently pending clinical improvement at this time. Will need placement in longterm facility versus long-term acute care once ready for discharge for long-term antibiotic and daily wound care for extensive wound Discharge Plan: Transfer Plan to discharge in: 72 Hours - Code Status/Comfort Care Code Status Assessed: Yes Critical Care: No
[2018-03-28] MEDS: TRAMADOL HCL 50 MG TAB PO PRN (15:07)
[2018-03-28] MEDS: SILVER SULFADIAZINE 1% 50 GM TOP SCH (17:02)
[2018-03-28] MEDS: ENOXAPARIN 40 MG/0.4 ML SQ SCH (20:44)
[2018-03-28] MEDS: ATORVASTATIN 10 MG TAB PO SCH (20:48)
[2018-03-29] MEDS: VANCOMYCIN 1.75 GM in NA CHLORIDE 0.9% 500 ML IVPB SCH ×2 (04:36→17:11)
[2018-03-29 05:32] LABS: BUN Blood Urea Nitrogen 11 mg/dL (7-18); Bicarbonate 29 mmol/L (21-32); Glucose Level 98 mg/dL (74-106); Sodium Level 140 mmol/L (136-145)
[2018-03-29] MEDS: PANTOPRAZOLE 40MG TABLET PO SCH (06:30)
[2018-03-29] MEDS: TRAMADOL HCL 50 MG TAB PO PRN ×2 (06:43→13:01)
[2018-03-29] MEDS: NICOTINE 21 MG/PAT TD SCH (07:56)
[2018-03-29] MEDS: ASPIRIN EC 81 MG TAB PO SCH (07:56)
[2018-03-29] MEDS: ARFORMOTEROL TARTRATE 15 MCG/2 ML VIAL.NEB NEB SCH (08:00)
[2018-03-29] MEDS: SILVER SULFADIAZINE 1% 50 GM TOP SCH (08:26)
[2018-03-29] MEDS: DOXYCYCLINE 100 MG in NA CHLORIDE 0.9% 100 ML IVPB SCH ×2 (08:27→21:27)
--- NOTE | 2018-03-29 11:33 | P.PN ---
Subjective Date of Service: 03/29/18 Primary Care Provider: Sylvie Cornejo NP; Radiation Oncology-Dr. Morgan Chief Complaint: Right lower extremity edema Patient seen and examined at bedside with RN. Chart reviewed. Case discussed with family and patient at bedside. Currently right leg cellulitis is showing improvement. The patient had a PICC line placed per surgery's recommendations for long-term IV antibiotics. Review of Systems 10-point ROS is otherwise unremarkable Physical Examination - Vital Signs Temperature: 98.5 F Blood Pressure: 116/72 Pulse: 73 Respirations: 16 Pulse Ox (%): 93 - Physical Exam General: Alert, In no apparent distress HEENT: Atraumatic, PERRLA, EOMI Neck: Supple, JVD not distended Respiratory: Clear to auscultation bilaterally, Normal air movement Cardiovascular: Regular rate/rhythm, Normal S1 S2 Gastrointestinal: Normal bowel sounds, No tenderness Musculoskeletal: Erythema, Tenderness, Warmth Integumentary: No rashes Neurological: Normal speech, Normal tone, Normal affect Lymphatics: No axilla or inguinal lymphadenopathy - Studies Medications List Reviewed: Yes Assessment And Plan - Current Problems (Diagnosis) (1) Cellulitis of right lower extremity Onset Date: 03/23/18 Current Visit: Yes Status: Acute Plan: Right leg lower extremity cellulitis with Myosititis -Will continue with IV antibiotic therapy- doxycycline and vancomycin. On DC will Need IV vanc and PO doxycycline -Will continue to elevate leg when sitting or lying. So far cultures negative. -MRI leg with Myositis and soft tissue swelling without abscess and Osteomylitis -CT pelvis scan revealed right sided inguinal lymphadenopathy likely reactive -smoking cessation provided as well. -surgery consulted. Appreciated recommendations at this time -PICC line placement for long-term IV antibiotics -wound care daily (2) Inguinal lymphadenopathy Onset Date: 03/23/18 Current Visit: Yes Status: Acute Plan: Inguinal lymphadenopathy -cat scratch disease cannot be ruled out. -Patient does have cats that he says that has scratched the area of the wound couple of weeks ago -on doxycycline at this time (3) Hyperlipidemia Onset Date: 03/23/18 Current Visit: Yes Status: Chronic Qualifiers: Hyperlipidemia type: mixed hyperlipidemia Qualified Code(s): E78.2 - Mixed hyperlipidemia (4) Hypertension Onset Date: 03/23/18 Current Visit: Yes Status: Chronic Qualifiers: Hypertension type: essential hypertension Qualified Code(s): I10 - Essential (primary) hypertension (5) Tobacco abuse Onset Date: 03/23/18 Current Visit: Yes Status: Chronic (6) Alcohol abuse Onset Date: 03/23/18 Current Visit: Yes Status: Chronic - Plan Currently pending clinical improvement at this time. Will need placement in longterm facility versus long-term acute care once ready for discharge for long-term antibiotic and daily wound care for extensive wound Discharge Plan: Shelter Plan to discharge in: 48 Hours - Code Status/Comfort Care Code Status Assessed: Yes Critical Care: No
--- NOTE | 2018-03-29 16:55 | PN ---
Date of Progress Note: 03/29/2018 Subjective: The patient is awake, alert. No complaint. Objective: Vital Signs: Stable. Afebrile. Extremities: Examination of the right leg reveals markedly diminished erythema and edema. There is some epidermal necrosis, blistering of the skin, which needs bedside debridement. Assessment: Right leg cellulitis and myositis. Recommendations: Continue dressing as ordered and IV antibiotics. Discharge planning is in effect. /MODL Voice ID: [id number] Report ID: [id number]
[2018-03-29] MEDS: ENOXAPARIN 40 MG/0.4 ML SQ SCH (21:00)
[2018-03-29] MEDS: CALCIUM CARBONATE 500 MG TAB PO SCH (21:00)
[2018-03-29] MEDS: ASCORBIC ACID 1000 MG PO SCH (21:00)
[2018-03-29] MEDS: VITAMIN D 1000 UNIT TAB PO SCH (21:00)
[2018-03-29] MEDS: ATORVASTATIN 10 MG TAB PO SCH (21:27)
[2018-03-29 21:58] VITALS: O2SAT 93
[2018-03-30] MEDS: VANCOMYCIN 1.75 GM in NA CHLORIDE 0.9% 500 ML IVPB SCH (04:47)
[2018-03-30] MEDS: PANTOPRAZOLE 40MG TABLET PO SCH (05:13)
[2018-03-30] MEDS: ASPIRIN EC 81 MG TAB PO SCH (09:00)
[2018-03-30] MEDS: SILVER SULFADIAZINE 1% 50 GM TOP SCH (09:00)
[2018-03-30] MEDS: NICOTINE 21 MG/PAT TD SCH (09:00)
[2018-03-30] MEDS: DOXYCYCLINE 100 MG in NA CHLORIDE 0.9% 100 ML IVPB SCH (09:07)
[2018-03-30 14:36] VITALS: BP 119/73; TEMP 98.5
--- NOTE | 2018-03-31 00:15 | DS ---
Date of Discharge: 03/30/2018 Consultants: Dr. Finn with General Surgery. Admitting Diagnoses: 1.Right lower extremity cellulitis, lymphangitis, and inguinal lymphadenopathy. 2.Myositis of the right lower extremity. 3.History of prostate cancer with prior prostatectomy, on Lupron injections. 4.Essential hypertension. 5.Hyperlipidemia. 6.Chronic obstructive pulmonary disease with chronic bronchitis. 7.Nicotine dependence with cigarette smoking, continuous. 8.Alcohol dependence and abuse without signs of acute withdrawal. 9.Hyponatremia, likely secondary to chronic alcohol. Discharge Diagnoses: 1.Right lower extremity cellulitis and lymphangitis. 2.Right lower extremity myositis. 3.Inguinal lymphadenopathy. 4.Mixed hyperlipidemia. 5.Essential hypertension. 6.Nicotine dependence with cigarette smoking, continuous, counseled. 7.Alcohol abuse and dependence. No signs of withdrawal. Counseled. 8.Likely chronic obstructive pulmonary disease, chronic bronchitis. 9.Hyponatremia, corrected. 10.History of prostate cancer, status post prostatectomy and Lupron injections. Hospital Course: The patient is a 62-year-old male with past medical history of prostate cancer, com es in with right lower extremity edema. The patient also noticed some swelling and redness consisten t with cellulitis. The patient was started on IV antibiotics. Venous Doppler was done, which did no t show any DVT. His sodium was also found to be low at 130, likely due to his chronic alcoholism. S odium was corrected. The patient was counseled regarding his smoking and his alcohol and he was unde rstanding. The patient otherwise had decrease in his WBC count. His infection improved. He was see n by Dr. Finn with General Surgery who did not recommend any surgical debridement. The patient did have wound care at the bedside with Silvadene topically. The patient's blood cultures were negative. Final wound cultures also did not show any growth. Urine culture was also negative. The patient r esponded well to treatment. He was able to ambulate, was not having any pain other than when the pat ient had bedside debridement. Due to patient's ambulating and continued elevation of his white count and his imaging studies showing myositis along with history of possible Cat-scratch disease due to e xposure to his pet cat who had been scratching his wound with evidence of inguinal lymphadenopathy, e was recommended to have long-term IV antibiotics. The patient was then referred to [facility] , and it was expected the patient will continue vancomycin 1.7 g q.12 hours for at least 2 weeks and continue with doxycycline p.o. for 2 weeks. MRI did not show any evidence of osteomyelitis. Foot MR I showed significant soft tissue infection and cellulitis and myositis. No drainable abscess or oste omyelitis. The patient was then cleared for discharge from surgical standpoint. He was transferred to [facility] in a fair condition. Activity: Fall precautions. Diet: Heart healthy. No smoking or alcohol. Return to ER for worsening condition. Followup: Follow up with primary care physician in 2-3 days. Follow up with surgeon, Dr. Finn, in 2 weeks for wound check. Applying Silvadene 1% to wound daily. Medications: As per medication reconciliation list. Physical Examination: General: Awake, alert, oriented x3. No acute distress. CV: S1, S2. No murmurs. Respiratory: Moving air well bilaterally. No wheezing. Gastrointestinal: Abdomen is soft, nontende r, nondistended. Positive bowel sounds. Extremities: No clubbing or cyanosis. Right lower extremity has some mild edema. Skin: Right lower extremity erythema, improving. Neurologic: Nonfocal. Total time spent discharging the patient was 37 minutes. /KINA Voice ID: [id number] Report ID: [id number]
== END 2018-03-30 14:55 | DRG 603 ==
LOC: ER 13:14 → ERHOLD 15:17 → 4TH 16:36
PROVIDERS: ADMIT Family Medicine; ATTEND Family Medicine
PROC: 02HV33Z Insertion of Infusion Device into Superior Vena Cava, Percutaneous Approach (ICD-10-PCS; principal; 2018-03-23)
DX: L03.115 Cellulitis of right lower limb (principal); E87.1 Hypo-osmolality and hyponatremia; M60.9 Myositis, unspecified; E78.2 Mixed hyperlipidemia; F17.210 Nicotine dependence, cigarettes, uncomplicated; F10.20 Alcohol dependence, uncomplicated; J44.9 Chronic obstructive pulmonary disease, unspecified; Z85.46 Personal history of malignant neoplasm of prostate; I10 Essential (primary) hypertension; Z88.0 Allergy status to penicillin; E87.6 Hypokalemia
CPT/HCPCS: 36415; 71045; 74176; 80048; 80053; 80202; 81003; 81015; 83605; 83735; 84132; 85025; 85610; 87040; 87070; 87075; 87086; 87088; 87205; 93971; 94760; 96361; 96365; 96366; 96368; 96375; 97163; 99285; J1170; J1650; J2405; J2997; J3010; J3370; J7030; J7605

== ENCOUNTER 2022-12-08 09:37 | Inpatient (IN) | payer OTHER ==
[2022-12-08 10:54] LABS: Absolute Lymphocytes (CBC) 1.2 K/uL (0.7-4.9); Hematocrit 35.9 % (39.6-49.0); Lymphocytes % 12.8 % (15.3-44.8); MCV 87.4 fL (80-100); MPV 7.1 fL (7.6-11.3)
[2022-12-08 11:03] LABS: Albumin 3.2 g/dL (3.4-5.0); Bilirubin Total 0.4 mg/dL (0.2-1.0); Potassium 3.8 mEq/L (3.5-5.1)
[2022-12-08 11:15] LABS: Protime INR 1.08
[2022-12-08] MEDS ORDERED: NA CHLORIDE 0.9% 1,000 ML ONE (11:20)
--- NOTE | 2022-12-08 11:45 | RAD REPORT ---
EXAM DESCRIPTION: US - Extremity Venous Uni Ltd - 12/08/2022 10:12 am CLINICAL HISTORY: Swelling, pain COMPARISON: 03/20/2018 TECHNIQUE: Real-time sonographic evaluation of the right lower extremity deep venous system was perf ormed. FINDINGS: Normal compressibility, flow augmentation, phasic flow and spontaneous flow is identified in the right lower extremity deep venous system. No intraluminal filling defects seen. Subcutaneous edema in the lower leg. Prominent groin lymph nodes, likely infectious or inflammatory. IMPRESSION: No DVT in the right lower extremity. Other findings as above.
--- NOTE | 2022-12-08 11:52 | ER ---
Nurse's Notes [facility] [place], [place] Name: Brandon Jenkins Age: 67 yrs Sex: Male : 1955 Arrival Date: 12/08/2022 Time: 09:37 Bed 16 Private MD: Diagnosis: Cellulitis and acute lymphangitis of other parts of limb Presentation: 12/08 09:44 Chief complaint: Patient states: RLE PAIN/SWELLING x2 DAYS. Coronavirus screen: At this bp time, the client does not indicate any symptoms associated with coronavirus-19. Ebola Screen: No symptoms or risks identified at this time. Initial Sepsis Screen: Does the patient meet any 2 criteria? No. Patient's initial sepsis screen is negative. Does the patient have a suspected source of infection? No. Patient's initial sepsis screen is negative. Risk Assessment: Do you want to hurt yourself or someone else? Patient reports no desire to harm self or others. Onset of symptoms is unknown. 09:44 Method Of Arrival: Wheelchair bp 09:44 Acuity: VIRIDIANA 3 bp Historical: - Allergies: 09:45 Iodine; bp 09:45 PENICILLINS (Anaphylaxis); bp - Home Meds: 09:45 aspirin 81 mg oral tablet,chewable 1 tab daily [Active]; Norvasc 10 mg oral tablet 1 bp tab daily [Active]; simvastatin 20 mg oral tablet 1 tab daily [Active]; - PMHx: 09:45 Angina; Asthma; Hyperlipidemia; Hypertension; Cellulitis; bp - Immunization history:: Adult Immunizations up to date. - Social history:: Smoking status: Patient denies any tobacco usage or history of. Screenin:42 [facility] ED Fall Risk Assessment (Adult) History of falling in the last 3 months, ko1 including since admission No falls in past 3 months (0 pts) Confusion or Disorientation No (0 pts) Intoxicated or Sedated No (0 pts) Impaired Gait No (0 pts) Mobility Assist Device Used No (0 pt) Altered Elimination No (0 pt) Score/Fall Risk Level 0 - 2 = Low Risk Oriented to surroundings, Maintained a safe environment, Educated pt \T\ family on fall prevention, incl call for assistance when getting out of bed, Assessed \T\ reinforced patient's understanding of fall precautions, Provided non-skid footwear, Hourly rounding (assess needs \T\ fall precautionary measures) done, Used ambulatory aids as needed (educated on \T\ assisted with), Used gait belt as appropriate. Abuse screen: Denies threats or abuse. Denies injuries from another. Nutritional screening: No deficits noted. Tuberculosis screening: No symptoms or risk factors identified. Assessment: 10:41 General: Appears in no apparent distress. comfortable, Behavior is calm, cooperative, ko1 appropriate for age. Pain: Pain: Complains of pain in right leg. Neuro: No deficits noted. Cardiovascular: No deficits noted. Respiratory: No deficits noted. GI: No deficits noted. : No deficits noted. EENT: No deficits noted. Derm: No deficits noted. Musculoskeletal: No deficits noted. Vital Signs: 09:44 BP 114 / 81; Pulse 81; Resp 16; Temp 97.3; Pulse Ox 96% ; Weight 90.72 kg; Height 5 ft. bp 8 in. ; 14:56 BP 124 / 76; Pulse 78; Resp 18; Pulse Ox 99% ; ko1 09:44 Body Mass Index 30.41 (90.72 kg, 172.72 cm) bp ED Course: 09:39 Patient arrived in ED. rg4 09:42 Katlin Troy PA-C is PHCP. sb4 09:42 Conner Howell MD is Attending Physician. sb4 09:45 Triage completed. bp 09:45 Arm band placed on. bp 10:12 Rachel Ibarra, RN is Primary Nurse. ko1 10:14 Extremity Venous Uni Ltd US In Process Unspecified. EDMS 10:35 First set of blood cultures drawn by me, Second set of blood cultures drawn by me. ds4 10:39 Blood Culture Adult (2) Sent. ds4 10:39 CBC with Diff Sent. ds4 10:39 CMP Sent. ds4 10:39 Lactate w/ 2H reflex if indic. Sent. ds4 10:39 Protime (+inr) Sent. ds4 10:39 Ptt, Activated Sent. ds4 10:39 Inserted saline lock: 22 gauge in left hand, using aseptic technique. Blood collected. ds4 10:42 Patient has correct armband on for positive identification. Bed in low position. Call ko1 light in reach. Side rails up X 1. Provided Education on: IV, labs. Client placed on continuous cardiac and pulse oximetry monitoring. NIBP monitoring applied. monitoring manager on. Door closed. Noise minimized. Lights dimmed. Warm blanket given. 10:44 SARS-COV-2 Antigen Rapid Sent. ko1 10:44 CRP Sent. ko1 11:51 Kai Espinosa is Hospitalizing Provider. sb4 14:56 No provider procedures requiring assistance completed. Patient admitted, IV remains in ko1 place. Administered Medications: 11:15 Drug: NS 0.9% IV 1000 ml Route: IV; Rate: 1 bolus; Site: left hand; ko1 12:00 Drug: levofloxacin IVPB 750 mg Volume: 150 ml; Route: IVPB; Infused Over: 90 mins; ko1 Site: left hand; 12:41 Drug: vancoMYCIN IVPB 1 grams Route: IVPB; Infused Over: 2 hrs; Site: left hand; ko1 Medication: 14:56 VIS not applicable for this client. ko1 Outcome: 11:52 Decision to Hospitalize by Provider. sb4 14:56 Admitted to Med/surg accompanied by tech, via wheelchair, room 406, with chart. ko1 14:56 Condition: stable 14:56 Instructed on the need for admit, Demonstrated understanding of instructions. 14:57 Patient left the ED. ko1 Signatures: Dispatcher [employer] EDMS Kai Zaldivar ds4 Pura Domínguez rg4 Jimmy Jordan RN RN Rachel Verma RN RN ko1 Katlin Troy PA-C PA-C sb4 Corrections: (The following items were deleted from the chart) 10:43 10:41 Pain: ko1 ko1
--- NOTE | 2022-12-08 11:52 | EDPHYS ---
Physician Documentation [facility] Name: Brandon Jenkins Age: 67 yrs Sex: Male : 1955 Arrival Date: 12/08/2022 Time: 09:37 Bed 16 Private MD: ED Physician Conner Howell HPI: 12/08 10:42 This 67 yrs old Male presents to ER via Wheelchair with complaints of Leg Swelling. sb4 10:42 The patient presents with cellulitis of the lateral aspect of right calf, right calf, sb4 medial aspect of right calf and right keller. Description: erythematous, warm. Onset: The symptoms/episode began/occurred 4 day(s) ago. Possible cause(s): bumped into a coffee table. Associated signs and symptoms: Pertinent positives: fever, swelling, Pertinent negatives: discharge, drainage, nausea, shortness of breath, vomiting. The patient has experienced a previous episode, approximately 5 years ago, but today's symptoms are not as bad as this previous episode. states he his his right keller on a coffee table 4 days ago and his right lower leg has slowly become more red and swollen. he reports fever, chills, pain. Historical: - Allergies: 09:45 Iodine; bp 09:45 PENICILLINS (Anaphylaxis); bp - Home Meds: 09:45 aspirin 81 mg oral tablet,chewable 1 tab daily [Active]; Norvasc 10 mg oral tablet 1 bp tab daily [Active]; simvastatin 20 mg oral tablet 1 tab daily [Active]; - PMHx: 09:45 Angina; Asthma; Hyperlipidemia; Hypertension; Cellulitis; bp - Immunization history:: Adult Immunizations up to date. - Social history:: Smoking status: Patient denies any tobacco usage or history of. ROS: 10:42 Cardiovascular: Negative for chest pain, palpitations, and edema, Respiratory: Negative sb4 for shortness of breath, cough, wheezing, and pleuritic chest pain, Abdomen/GI: Negative for abdominal pain, nausea, vomiting, diarrhea, and constipation. 10:42 Constitutional: Positive for chills, fever. 10:42 Skin: Positive for cellulitis, erythema, swelling. 10:42 All other systems are negative. Exam: 10:42 Constitutional: This is a well developed, well nourished patient who is awake, alert, sb4 and in no acute distress. Head/Face: Normocephalic, atraumatic. Eyes: Extra-ocular motions intact. Periorbital areas with no swelling, redness, or edema. ENT: Mucous membranes moist. Cardiovascular: Regular rate and rhythm with a normal S1 and S2. Respiratory: Lungs have equal breath sounds bilaterally, clear to auscultation and percussion. No rales, rhonchi or wheezes noted. No increased work of breathing, no retractions or nasal flaring. Abdomen/GI: Soft, non-tender, no distension. Back: No spinal tenderness. No costovertebral tenderness. Full range of motion. MS/ Extremity: Pulses equal, no cyanosis. Neurovascular intact. Full, normal range of motion. Neuro: Awake and alert, GCS 15, oriented to person, place, time, and situation. Cranial nerves II-XII grossly intact. Motor strength 5/5 in all extremities. Sensory grossly intact. Cerebellar exam normal. Normal gait. Psych: Awake, alert, with orientation to person, place and time. Behavior, mood, and affect are within normal limits. 10:42 Skin: cellulitis, that is moderate, confluent, on the right keller and medial aspect of right calf and right calf and lateral aspect of right calf. Vital Signs: 09:44 BP 114 / 81; Pulse 81; Resp 16; Temp 97.3; Pulse Ox 96% ; Weight 90.72 kg; Height 5 ft. bp 8 in. ; 14:56 BP 124 / 76; Pulse 78; Resp 18; Pulse Ox 99% ; ko1 09:44 Body Mass Index 30.41 (90.72 kg, 172.72 cm) bp MDM: 09:45 Patient medically screened. sb4 10:42 Differential diagnosis: allergic reaction, cellulitis, osteomyelitis, DVT. sb4 11:46 Data reviewed: vital signs, nurses notes, old medical records, Previous H\T\P from 4 admission in 2018 lab test result(s), EKG, radiologic studies, I have discussed the patient's presentation/case with the attending Emergency Department Physician; and as a result, I will admit patient. Consideration of Admission/Observation Patient was admitted/placed on observation. Management of patient was discussed with the following: Hospitalist: JANIE Isabel. I considered the following discharge prescriptions or medication management in the emergency department Medications were administered in the Emergency Department. See MAR. Historians other than the Patient: Spouse/Significant Other: . Care significantly affected by the following chronic conditions: Hypertension. Counseling: I had a detailed discussion with the patient and/or guardian regarding: the historical points, exam findings, and any diagnostic results supporting the discharge/admit diagnosis, lab results, radiology results, the need for further work-up and treatment in the hospital. 12/08 09:54 Order name: Blood Culture Adult (2) [facility] 12/08 09:54 Order name: CBC with Diff; Complete Time: 11:14 sb4 12/08 09:54 Order name: CMP; Complete Time: 11:05 sb4 12/08 09:54 Order name: Lactate w/ 2H reflex if indic.; Complete Time: 11:05 12/08 09:54 Order name: Protime (+inr); Complete Time: 11:25 sb4 12/08 09:54 Order name: Ptt, Activated; Complete Time: 11:25 4 12/08 10:39 Order name: CRP; Complete Time: 11:25 4 12/08 10:39 Order name: SARS-COV-2 Antigen Rapid sb4 12/08 09:54 Order name: Extremity Venous Uni Ltd US; Complete Time: 11:46 sb4 12/08 09:54 Order name: EKG; Complete Time: 09:55 sb4 12/08 13:57 Order name: Heart [facility] 12/08 09:54 Order name: Accucheck; Complete Time: 10:44 sb4 12/08 09:54 Order name: Cardiac monitoring; Complete Time: 10:22 sb4 12/08 09:54 Order name: EKG - Nurse/Tech; Complete Time: 10:57 sb4 12/08 09:54 Order name: IV Saline Lock - Large Bore; Complete Time: 10:39 sb4 12/08 09:54 Order name: Labs collected and sent; Complete Time: 10:39 sb4 12/08 09:54 Order name: O2 Per Protocol; Complete Time: 10:22 sb4 12/08 09:54 Order name: O2 Sat Monitoring; Complete Time: 10:22 sb4 12/08 09:54 Order name: Vital Signs; Complete Time: 10:22 sb4 EC:57 Rate is 73 beats/min. Rhythm is regular, Normal Sinus Rhythm. QRS [place] is Normal. DE sb4 interval is normal at 188 msec. QRS interval is normal at 110 msec. QT interval is normal at 380 msec. Clinical impression: Normal ECG. Interpreted by me. Reviewed by me. Administered Medications: 11:15 Drug: NS 0.9% IV 1000 ml Route: IV; Rate: 1 bolus; Site: left hand; ko1 12:00 Drug: levofloxacin IVPB 750 mg Volume: 150 ml; Route: IVPB; Infused Over: 90 mins; ko1 Site: left hand; 12:41 Drug: vancoMYCIN IVPB 1 grams Route: IVPB; Infused Over: 2 hrs; Site: left hand; ko1 Disposition: 11:42 Co-signature as Attending Physician, Conner Howell MD I reviewed the patient's care rn provided by Advanced Practice Provider \T\ agree w/ the diagnosis \T\ care plan. I personally saw the pt \T\ performed a substantive portion of the visit, incldng all aspects of the (History/Exam/Medical Decision Making). PA/SIGN MAKER's history reviewed, patient interviewed, and examined. HPI: 67 year old male with infection of RLE and swelling after minor trauma My personal exam of patient reveals: Non-blanching erythema RLE with streaking along lymph system to inner mid-thigh I agree with assessment and care plan and confirm the diagnosis (es) above. Disposition Summary: 12/08/22 11:52 Hospitalization Ordered Hospitalization Status: Inpatient Admission sb4 Provider: [facility]spinosa [facility] Condition: Fair sb4 Problem: new sb4 Symptoms: are unchanged sb4 Bed/Room Type: Standard sb4 Room Assignment: 406(12/08/22 14:03) em1 Diagnosis - Cellulitis and acute lymphangitis of other parts of limb sb4 Forms: - Medication Reconciliation Form sb4 - SBAR form sb4 Signatures: Dispatcher [employer] EDConner Moseley MD MD rn Martinez, Eric em1 Jimmy Jordan RN RN bp Oliver, Kathy, RN RN ko1 Katlin Troy PA-C PA-C sb4 Corrections: (The following items were deleted from the chart) 14:03 11:52 sb4 em1
[2022-12-08] MEDS ORDERED: VANCOMYCIN 1 GM/VIAL ONE (12:02)
[2022-12-08] MEDS ORDERED: Levofloxacin 750mg IV 750 MG/150 ML BAG IV ONE (12:03)
[2022-12-08] MEDS ORDERED: HYDROCODONE/APAP 5/325 MG TAB PO PRN (13:53)
[2022-12-08] MEDS ORDERED: ACETAMINOPHEN 325 MG TABLET PO PRN (13:53)
[2022-12-08] MEDS ORDERED: ONDANSETRON 4 MG/2 ML VIAL IV PRN (15:04)
--- NOTE | 2022-12-08 15:09 | P.HP ---
Certification for Inpatient Patient admitted to: Inpatient With expected LOS: >2 Midnights Patient will require the following post-hospital care: None Practitioner: I am a practitioner with admitting privileges, knowledge of patient current condition, hospital course, and medical plan of care. Services: Services provided to patient in accordance with Admission requirements found in Title 42 Section 412.3 of the Code of Federal Regulations Patient History Date of Service: 12/08/22 Reason for admission: RLE swelling\redness\pain History of Present Illness: Patient is a 67-year-old male with a past medical history significant for asthma, hyperlipidemia, hypertension, cellulitis who presents with complaint of right lower extremity redness\pain\swelling onset 3 days ago. Patient reported he bumped his right lower extremity into the coffee table and from there, patient started having right lower redness\pain\swelling that became worse over time. Patient reported associated signs and symptoms of chills, headache, sore throat, diaphoresis, malaise, nausea and vomiting. Patient rated pain as 9/10 in severity and described pain as aching in quality. Patient denies any other signs or symptoms. Symptoms are aggravated or relieved by nothing. Patient decided to present to the hospital due to worsening symptoms. Allergies Penicillins Allergy (Severe, Verified 03/20/18 16:10) Anaphylaxis Iodine and Iodide Containing Produc Allergy (Verified 03/20/18 16:09) UNK Home Medications: Amlodipine [Norvasc*] 10 mg PO DAILY 03/20/18 Ascorbic Acid/Ascorbate Sodium [Vit C-Jennifer Hips 500 mg Chew Tb] 1,000 mg PO DAILY 03/20/18 Aspirin [Aspir-Low] 1 tab PO DAILY 03/20/18 Cholecalciferol (Vitamin D3) [Vitamin D3] 1,000 unit PO DAILY 03/20/18 Simvastatin 20 mg PO BEDTIME 03/20/18 - Past Medical/Surgical History Diabetic: No -: Hypertension -: Hyperlipidemia -: Prostate cancer with prior prostatectomy -: Tobacco abuse -: Alcohol abuse -: angina. Dr Richardson -: Prostatectomy Psychosocial/ Personal History: Patient is . He has no children. He is currently unemployed - Family History Family History: Reviewed- Non-Contributory - Social History Smoking Status: Former smoker Alcohol use: Yes CD- Drugs: No Caffeine use: Yes Place of Residence: Home Review of Systems General: Chills, Sweats, Malaise Eyes: Unremarkable ENT: Throat Pain Respiratory: Unremarkable Cardiovascular: Unremarkable Gastrointestinal: Nausea, Vomiting Genitourinary: Unremarkable Musculoskeletal: Other (RLE pain\swelling) Integumentary: Other (RLE redness ) Neurological: Weakness Lymphatics: Unremarkable Physical Examination - Physical Exam General: Alert, In no apparent distress, Oriented x3, Cooperative HEENT: Atraumatic, PERRLA, Mucous membr. moist/pink, EOMI, Sclerae nonicteric Neck: Supple, 2+ carotid pulse no bruit, No LAD, Without JVD or thyroid abnormality Respiratory: Clear to auscultation bilaterally, Normal air movement Cardiovascular: Regular rate/rhythm, Normal S1 S2, Edema Capillary refill: <2 Seconds Gastrointestinal: Normal bowel sounds, Soft and benign, No tenderness Musculoskeletal: No clubbing, Swelling, Erythema, Tenderness Integumentary: No rashes, No significant lesion, Tenderness/swelling, Erythema, Warmth Neurological: Normal gait, Normal speech, Normal strength at 5/5 x4 extr, Normal tone, Normal affect Lymphatics: No axilla or inguinal lymphadenopathy - Studies Laboratory Data (last 24 hrs) 12/08/22 10:35: PT 11.9, INR 1.08, APTT 29.2 12/08/22 10:35: Sodium 135 L, Potassium 3.8, BUN 21 H, Creatinine 0.88, Glucose 153 H, Total Bilirubin 0.4, AST 18, ALT 30, Alkaline Phosphatase 72 12/08/22 10:35: WBC 9.40, Hgb 12.1 L, Hct 35.9 L, Plt Count 224 Assessment and Plan - Plan -- Right lower extremity cellulitis. Blood cultures pending. Continue antibiotics. Doppler ultrasound does not indicate any DVT in the right lower extremity. Infectious disease MD consulted. Will await further recommendations. --Acute pain. We will manage pain with current pain medication regimen. --Hyperlipidemia. Continue statin. --Asthma. Stable. Continue home medication. --Hypertension. Stable. Continue home medication. --Anemia of chronic disease. H&H stable. We will continue to monitor hemoglobin and transfuse if less than 7.0. -- Nausea and vomiting. Currently resolved. Antiemetics on board. Continue supportive care. --Class I obesity. Likely secondary to excess calories intake. Patient counseled on weight reduction, diet and excise therapy. --DVT prophylaxis with Lovenox subQ. Discharge Plan: Home Plan to discharge in: Greater than 2 days - Advance Directives Does patient have a Living Will: No Does patient have a Durable POA for Healthcare: No - Code Status/Comfort Care Code Status Assessed: Yes Physician Review: Patient Assessed, Agree with Above Assessment and Plan Critical Care: No
[2022-12-08 15:44] VITALS: BMI 30.4
[2022-12-08 16:12] LABS: Magnesium 2.1 mg/dL (1.6-2.4); Phosphorus 3.6 mg/dL (2.5-4.9)
[2022-12-08 17:37] LABS: Specific Gravity 1.025 (1.005-1.030); Urine Bacteria None Seen /HPF (<20); Urine Bilirubin NEGATIVE (Negative); Urine Blood Negative (Negative); Urine Clarity Clear (Clear); Urine Color Light-Yellow (Yellow); Urine Crystals Unidentified Few /HPF (None Seen); Urine Glucose NEGATIVE (Negative); Urine Mucus Slight /HPF (None Seen); Urine Protein TRACE (Negative); Urine RBC <5 /HPF (None Seen); Urine Urobilinogen Normal (Normal)
[2022-12-08] MEDS: ASPIRIN 81 MG CHEWABLE TABLET PO SCH (17:42)
[2022-12-08] MEDS: CLINDAMYCIN 900MG/D5W 900 MG/50 ML IVPB IV SCH (17:42)
[2022-12-08] MEDS ORDERED: Levofloxacin 750mg IV 750 MG/150 ML BAG IV SCH (20:00)
[2022-12-08] MEDS: ATORVASTATIN 20 MG TAB PO SCH (21:00)
[2022-12-08] MEDS ORDERED: ATORVASTATIN 10 MG TAB PO SCH (21:00)
[2022-12-08] MEDS ORDERED: HOME MED 1 EA UNK (Simvastatin [Simvastatin] 20 MG Tablet) PO SCH (21:00)
[2022-12-09] MEDS: CLINDAMYCIN 900MG/D5W 900 MG/50 ML IVPB IV SCH ×2 (01:06→08:36)
[2022-12-09 06:36] LABS: Absolute Lymphocytes (CBC) 1.1 K/uL (0.7-4.9); Hematocrit 35.2 % (39.6-49.0); Lymphocytes % 13.7 % (15.3-44.8); MCV 86.1 fL (80-100); MPV 7.5 fL (7.6-11.3); RBC Red Blood Cell Count 4.09 M/uL (4.33-5.43)
[2022-12-09 07:04] LABS: Potassium 3.8 mEq/L (3.5-5.1)
[2022-12-09] MEDS: ENOXAPARIN 40 MG/0.4 ML SQ SCH (08:34)
[2022-12-09] MEDS: ASPIRIN 81 MG CHEWABLE TABLET PO SCH (08:34)
[2022-12-09] MEDS: AMLODIPINE 10 MG TAB PO SCH (08:35)
[2022-12-09] MEDS: VITAMIN D 1000 UNIT TAB PO SCH (08:36)
[2022-12-09] MEDS: ASCORBIC ACID 500 MG TABLET PO SCH (08:36)
[2022-12-09] MEDS ORDERED: HOME MED 1 EA UNK (Cholecalciferol (Vitamin D3) [Vitamin D3] 2,000 UNIT Capsule) PO SCH (09:00)
--- NOTE | 2022-12-09 10:25 | P.CNS ---
Date of Consult: 12/09/22 Reason for Consult: RLE Cellulitis Chief Complaint: RLE swelling\\redness\\pain History of Present Illness: Patient is a 67 yo male with a history of hypertension, hyperlipidemia, asthma and history of prostate cancer s/p prostatectomy who presented to the ED with complaints of right lower extremity redness, pain and swelling which began 3 days prior to arrival. Patient reports bumping his leg on the coffee table and began developing redness and swelling. Venous study of RLE obtained without evidence of DVT. ID consulted for RLE cellulits. Allergies Penicillins Allergy (Severe, Verified 03/20/18 16:10) Anaphylaxis Iodine and Iodide Containing Produc Allergy (Verified 03/20/18 16:09) UNK Home medications list reviewed: Yes Home Medications: Amlodipine [Norvasc*] 10 mg PO DAILY 03/20/18 Ascorbic Acid/Ascorbate Sodium [Vit C-Jennifer Hips 500 mg Chew Tb] 1,000 mg PO DAILY 03/20/18 Aspirin [Aspir-Low] 1 tab PO DAILY 03/20/18 Cholecalciferol (Vitamin D3) [Vitamin D3] 1,000 unit PO DAILY 03/20/18 Simvastatin 20 mg PO BEDTIME 03/20/18 - Past Medical/Surgical History Diabetic: No -: Hypertension -: Hyperlipidemia -: Prostate cancer with prior prostatectomy -: Tobacco abuse -: Alcohol abuse -: angina. Dr Richardson -: Prostatectomy Psychosocial/ Personal History: Patient is . He has no children. He is currently unemployed - Social History Smoking Status: Current every day smoker Alcohol use: Yes CD- Drugs: No Caffeine use: Yes Place of Residence: Home Review of Systems 10-point ROS is otherwise unremarkable Integumentary: As per HPI Physical Examination Temp Pulse Resp BP Pulse Ox 97.8 F 76 14 126/82 95 12/09/22 08:00 12/09/22 08:00 12/09/22 08:00 12/09/22 08:00 12/09/22 08:00 General: Alert, In no apparent distress, Oriented x3 HEENT: Atraumatic, Normocephalic Neck: Supple, JVD not distended Respiratory: Clear to auscultation bilaterally, Normal air movement Cardiovascular: Regular rate/rhythm, Edema (RLE), Abnormal pulses (weak pedal pulses) Gastrointestinal: Normal bowel sounds, No tenderness Musculoskeletal: No clubbing Integumentary: Tenderness/swelling (RLE), Erythema (RLE posterior >anterior lower leg), Warmth (RLE) Neurological: Normal speech, Normal tone, Normal affect Laboratory Data - Reviewed Microbiology Data - Reviewed Imagings Data: - Reviewed Medications List - Reviewed Conclusions/Impression: Problem List Hypertension Hyperlipidemia Prostate cancer s/p prostatectomy Nicotine dependence Asthma Cellulitis of Right Lower Extremity Cellulitis of Right Lower Extremity - Venous study RLE 12/08: "No DVT in the right lower extremity" - Blood cultures 12/08: pending - Currently on Levaquin and Clindamycin (started 12/08) - Reports previous cellulitis of right lower extremity in 2018 treated with Vancomycin and requiring wound care with multiple debridements by . - Posterior lower leg edematous with erythema and warmth. Posterior aspect deep red in color. Afebrile. No leukocytosis Recommendations - Continue Levaquin for now. Will add Vancomycin and discontinue Clindamycin. - Elevate leg above heart level to minimize swelling - Monitor for worsening/spreading erythema and swelling ID will follow up and adjust antibiotics as needed. Case discussed with Nena Vega
[2022-12-09] MEDS: Levofloxacin 750mg IV 750 MG/150 ML BAG IV SCH (11:50)
--- NOTE | 2022-12-09 18:19 | P.PN ---
Subjective Date of Service: 12/09/22 Chief Complaint: RLE swelling\redness\pain Patient feels his right leg cellulitis is getting worse, and the erythema is worse on the posterior aspect of the leg. No recorded fever. Physical Examination - Vital Signs Temperature: 97.5 F Blood Pressure: 134/84 Pulse: 70 Respirations: 14 Pulse Ox (%): 95 Assessment And Plan - Plan Physical Exam General: Alert, In no apparent distress, Oriented x3, Cooperative HEENT: Atraumatic, PERRLA, Mucous membr. moist/pink, EOMI, Sclerae nonicteric Neck: Supple, 2+ carotid pulse no bruit, No LAD, Without JVD or thyroid abnormality Respiratory: Clear to auscultation bilaterally, Normal air movement Cardiovascular: Regular rate/rhythm, Normal S1 S2, Edema Gastrointestinal: Normal bowel sounds, Soft and benign, No tenderness Musculoskeletal: No clubbing, Swelling, Erythema-right leg. Integumentary: Tenderness/swelling, Erythema-right leg. Neurological: Normal gait, Normal speech, Normal strength at 5/5 x4 extr, Normal tone, Normal affect Lymphatics: No axilla or inguinal lymphadenopathy Diagnosis Right lower extremity cellulitis Essential hypertension. Plan: IV antibiotics-Levaquin and vancomycin Infectious disease input appreciated. Keep lower extremity elevated. Continue home medication for hypertension. Pain medication as needed
--- NOTE | 2022-12-09 20:26 | EKG ---
Test Date: 2022-12-08 Test Time: 10:52:50 Director Credit Risk: LINDSEY MEASUREMENT RESULTS: Intervals: Rate: 73 LA: 188 QRSD: 110 QT: 380 QTc: 418 Halma: P: 57 LA: 188 QRS: 75 T: 65 INTERPRETIVE STATEMENTS: Normal sinus rhythm Normal ECG Compared to ECG 08/17/2002 19:08:00 No significant changes Electronically Signed On 12-09-22 20:23:51 CDT by Oren Damian
[2022-12-09] MEDS: ATORVASTATIN 20 MG TAB PO SCH (21:00)
[2022-12-09] MEDS: VANCOMYCIN 1.25 GM in NA CHLORIDE 0.9% 250 ML IVPB SCH (22:02)
[2022-12-10] MEDS: VANCOMYCIN 1.25 GM in NA CHLORIDE 0.9% 250 ML IVPB SCH ×2 (08:34→21:02)
[2022-12-10] MEDS: ASCORBIC ACID 500 MG TABLET PO SCH ×2 (08:34→08:54)
[2022-12-10] MEDS: VITAMIN D 1000 UNIT TAB PO SCH ×2 (08:34→08:54)
[2022-12-10] MEDS: ENOXAPARIN 40 MG/0.4 ML SQ SCH ×2 (08:34→08:54)
[2022-12-10] MEDS: ASPIRIN 81 MG CHEWABLE TABLET PO SCH ×2 (08:35→08:54)
[2022-12-10] MEDS: AMLODIPINE 10 MG TAB PO SCH ×2 (08:35→08:54)
[2022-12-10 09:26] VITALS: O2SAT 95
--- NOTE | 2022-12-10 09:42 | P.PN ---
Date of Service: 12/10/22 Chief Complaint: Right lower leg swelling\\redness\\pain Subjective: Improving. Patient sitting in chair. at bedside. Reports improvement of RLE cellulitis. Denies any new or worsening complaints. No acute events reported overnight. Physical Examination Temp Pulse Resp BP Pulse Ox 97 F 75 18 128/79 95 12/10/22 08:00 12/10/22 08:00 12/10/22 08:00 12/10/22 08:00 12/10/22 08:00 General: Alert, In no apparent distress, Oriented x3 HEENT: Atraumatic, Normocephalic Neck: Supple, JVD not distended Respiratory: Clear to auscultation bilaterally, Normal air movement Cardiovascular: Regular rate/rhythm, Edema RLE, weak pedal pulses. Gastrointestinal: Normal bowel sounds, No tenderness Musculoskeletal: No clubbing Integumentary: RLE tenderness/swelling, erythema (posterior >anterior), warmth - improving from yesterday Neurological: Normal speech, Normal tone, Normal affect Studies Laboratory Data - Reviewed Microbiology Data - Reviewed Imagings Data: - Reviewed Medications List - Reviewed Assessment and Plan Problem List Hypertension Hyperlipidemia Prostate cancer s/p prostatectomy Nicotine dependence Asthma Cellulitis of Right Lower Extremity Cellulitis of Right Lower Extremity - Venous study RLE 12/08: "No DVT in the right lower extremity" - Currently on Levaquin (12/08-) and Vancomycin (12/09-) - Reports previous cellulitis of right lower extremity in 2018 treated with Vancomycin and requiring wound care with multiple debridements by . - Posterior lower leg edematous with erythema and warmth. Posterior aspect deep red in color. Blood cultures 12/08: No growth to date Afebrile. No leukocytosis Recommendations - Continue Levaquin and Vancomycin for now. Continue antibiotic therapy for 14 days duration. --> Upon discharge, consider Levofloxacin PO and Doxycycline PO. - Elevate leg above heart level to minimize swelling Patient and educated regarding importance of completing full course of antibiotics, signs and symptoms of worsening infection to monitor, and elevation of extremity to reduce swelling. ID will continue to follow patient as needed. Case discussed with Dr. Watts N.
[2022-12-10] MEDS: Levofloxacin 750mg IV 750 MG/150 ML BAG IV SCH (12:49)
--- NOTE | 2022-12-10 18:10 | P.PN ---
Subjective Date of Service: 12/10/22 Chief Complaint: RLE swelling\redness\pain Right lower extremity swelling and erythema have significantly improved. He has had no fever. Physical Examination - Vital Signs Temperature: 97.7 F Blood Pressure: 133/81 Pulse: 70 Respirations: 18 Pulse Ox (%): 96 Assessment And Plan - Plan Physical Exam General: Alert, In no apparent distress, Oriented x3, Cooperative HEENT: Atraumatic, PERRLA, Mucous membr. moist/pink, EOMI, Sclerae nonicteric Neck: Supple, 2+ carotid pulse no bruit, No LAD, Without JVD or thyroid abnormality Respiratory: Clear to auscultation bilaterally, Normal air movement Cardiovascular: Regular rate/rhythm, Normal S1 S2, Edema Gastrointestinal: Normal bowel sounds, Soft and benign, No tenderness Musculoskeletal: No clubbing, Swelling, Erythema-right leg. Integumentary: Tenderness/swelling, Erythema-right leg. Neurological: Normal gait, Normal speech, Normal strength at 5/5 x4 extr, Normal tone, Normal affect Lymphatics: No axilla or inguinal lymphadenopathy Diagnosis Right lower extremity cellulitis Essential hypertension. Plan: Lower extremity cellulitis is improving Continue IV antibiotics-Levaquin and vancomycin Infectious disease is following Keep lower extremity elevated. Continue home medication for hypertension. Pain medication as needed. Possible discharge in a.m. with oral antibiotics-Levaquin and doxycycline.
[2022-12-10] MEDS: ATORVASTATIN 20 MG TAB PO SCH (20:24)
[2022-12-11 06:35] LABS: Magnesium 2.4 mg/dL (1.6-2.4); Phosphorus 2.7 mg/dL (2.5-4.9); Potassium 3.9 mEq/L (3.5-5.1)
[2022-12-11] MEDS: ENOXAPARIN 40 MG/0.4 ML SQ SCH (08:57)
[2022-12-11] MEDS: ASCORBIC ACID 500 MG TABLET PO SCH (08:58)
[2022-12-11] MEDS: VITAMIN D 1000 UNIT TAB PO SCH (08:59)
[2022-12-11] MEDS: AMLODIPINE 10 MG TAB PO SCH (08:59)
[2022-12-11] MEDS: ASPIRIN 81 MG CHEWABLE TABLET PO SCH (08:59)
[2022-12-11] MEDS ORDERED: POTASSIUM 25 MEQ EFFERV TAB PO ONE (09:00)
[2022-12-11] MEDS: VANCOMYCIN 1.25 GM in NA CHLORIDE 0.9% 250 ML IVPB SCH (09:10)
--- NOTE | 2022-12-11 09:59 | P.PN ---
Date of Service: 12/11/22 Chief Complaint: Right lower leg swelling\\redness\\pain Subjective: Improving. Patient seen and examined at bedside. Resting comfortably in bed. Denies any new or worsening complaints. Cellulitis improving. No acute events reported overnight. Physical Examination Temp Pulse Resp BP Pulse Ox 97.0 F 67 18 111/64 95 12/11/22 04:00 12/11/22 04:00 12/11/22 04:00 12/11/22 04:00 12/11/22 04:00 General: Alert, In no apparent distress, Oriented x3 HEENT: Atraumatic, Normocephalic Neck: Supple, JVD not distended Respiratory: Clear to auscultation bilaterally, Normal air movement Cardiovascular: Regular rate/rhythm, Edema RLE, weak pedal pulses. Gastrointestinal: Normal bowel sounds, No tenderness Musculoskeletal: No clubbing Integumentary: RLE tenderness/swelling, erythema (posterior >anterior), warmth - improving from yesterday Neurological: Normal speech, Normal tone, Normal affect Studies Laboratory Data - Reviewed Microbiology Data - Reviewed Imagings Data: - Reviewed Medications List - Reviewed Assessment and Plan Problem List Hypertension Hyperlipidemia Prostate cancer s/p prostatectomy Nicotine dependence Asthma Cellulitis of Right Lower Extremity Cellulitis of Right Lower Extremity - Venous study RLE 12/08: "No DVT in the right lower extremity" - Currently on Levaquin (12/08-) and Vancomycin (12/09-) - Reports previous cellulitis of right lower extremity in 2018 treated with Vancomycin and requiring wound care with multiple debridements by . - Posterior lower leg edematous with erythema and warmth. Posterior aspect deep red in color. Blood cultures 12/08: No growth to date Afebrile. No leukocytosis Recommendations - Continue Levaquin and Vancomycin for now. Continue antibiotic therapy for 14 days duration. Currently day 3 of 14. --> Upon discharge, consider Doxycycline PO + Levofloxacin PO - Elevate leg above heart level to minimize swelling Patient and educated regarding importance of completing full course of ant ibiotics, signs and symptoms of worsening infection to monitor, and elevation of extremity to reduce swelling. Recommended probiotics as well. ID will continue to follow patient as needed. Case discussed with Nena Vega
[2022-12-11 11:00] VITALS: BP 111/76; TEMP 98.5
[2022-12-11] MEDS: Levofloxacin 750mg IV 750 MG/150 ML BAG IV SCH (11:30)
--- NOTE | 2022-12-11 12:31 | P.DS ---
Admission Date: 12/08/22 Discharge Date: 12/11/22 Disposition: ROUTINE DISCHARGE Discharge Condition: FAIR Reason for Admission: RLE swelling\redness\pain Brief History of Present Illness: Patient is a 67-year-old male with a past medical history significant for asthma, hyperlipidemia, hypertension, cellulitis who presented with complaint of right lower extremity redness\pain\swelling of 3 days duration. Patient reported he bumped his right lower extremity into the coffee table and from there, patient started having right lower redness\pain\swelling that became worse over time. Patient reported associated signs and symptoms of chills, headache, sore throat, diaphoresis, malaise, nausea and vomiting. Patient rated pain as 9/10 in severity and described pain as aching in quality. He was hospitalized for further management of lower extremity cellulitis. Hospital Course: Diagnosis Right lower extremity cellulitis Essential hypertension. Plan: Patient admitted to medical floor and treated with broad-spectrum antibiotics including Levaquin and vancomycin. He was seen in consultation by infectious disease who agreed with antibiotic choice and outpatient treatment with Levaquin and doxycycline once discharged. Lower extremity cellulitis significantly improved with treatment Continue home medication for hypertension. Pain medication as needed. Patient overall has significantly improved. No sepsis. Blood cultures showed no growth. He is tolerating diet and he is ambulatory. He is discharged with oral Levaquin and doxycycline to complete 14 days of treatment. Vital Signs/Physical Exam: Temp Pulse Resp BP Pulse Ox 98.5 F 72 20 111/76 95 12/11/22 08:00 12/11/22 08:00 12/11/22 08:00 12/11/22 08:00 12/11/22 08:00 General: Alert, In no apparent distress, Oriented x3 HEENT: Mucous membr. moist/pink Neck: JVD not distended Respiratory: Clear to auscultation bilaterally, Normal air movement Cardiovascular: Regular rate/rhythm, Normal S1 S2, Edema (Right lower extremity) Gastrointestinal: Soft and benign, Non-distended, No tenderness Musculoskeletal: Erythema (Right leg) Integumentary: Erythema (Right leg) Neurological: Normal strength at 5/5 x4 extr, Cranial nerves 3-12 intact Laboratory Data at Discharge: WBC 7.80 thou/uL (4.3-10.9) 12/09/22 05:55 Hgb 12.5 g/dL (13.6-17.9) L 12/09/22 05:55 Hct 35.2 % (39.6-49.0) L 12/09/22 05:55 Plt Count 220 thou/uL (152-406) 12/09/22 05:55 PT 11.9 SECONDS (9.5-12.5) 12/08/22 10:35 INR 1.08 12/08/22 10:35 APTT 29.2 SECONDS (24.3-36.9) 12/08/22 10:35 Sodium 138 mEq/L (136-145) 12/11/22 05:25 Potassium 3.9 mEq/L (3.5-5.1) 12/11/22 05:25 BUN 16 mg/dL (7-18) 12/11/22 05:25 Creatinine 0.77 mg/dL (0.70-1.30) 12/11/22 05:25 Glucose 105 mg/dL (74-106) 12/11/22 05:25 Phosphorus 2.7 mg/dL (2.5-4.9) 12/11/22 05:25 Magnesium 2.4 mg/dL (1.6-2.4) 12/11/22 05:25 Total Bilirubin 0.4 mg/dL (0.2-1.0) 12/08/22 10:35 AST 18 U/L (15-37) 12/08/22 10:35 ALT 30 U/L (16-61) 12/08/22 10:35 Alkaline Phosphatase 72 U/L (45-117) 12/08/22 10:35 Home Medications: Amlodipine [Norvasc*] 10 mg PO DAILY 03/20/18 Ascorbic Acid/Ascorbate Sodium [Vit C-Jennifer Hips 500 mg Chew Tb] 1,000 mg PO DAILY 03/20/18 Aspirin [Aspir-Low] 1 tab PO DAILY 03/20/18 Cholecalciferol (Vitamin D3) [Vitamin D3] 1,000 unit PO DAILY 03/20/18 Simvastatin 20 mg PO BEDTIME 03/20/18 Doxycycline Hyclate 100 mg PO BID #24 cap 12/11/22 Hydrocodone 5/APAP 325 [[place] 5/325*] 1 tab PO Q6H PRN #15 tab 12/11/22 Silver Nitrate [Silver Wound] 1 estiven TP BID #14.2 g 12/11/22 levoFLOXacin [Levaquin] 750 mg PO DAILY #12 tab 12/11/22 New Medications: Doxycycline Hyclate 100 mg PO BID #24 cap levoFLOXacin [Levaquin] 750 mg PO DAILY #12 tab Hydrocodone 5/APAP 325 [[place] 5/325*] 1 tab PO Q6H PRN #15 tab PRN Reason: Pain Scale 5-7 (Moderate) Silver Nitrate [Silver Wound] 1 estiven TP BID #14.2 g Physician Discharge Instructions: Please keep right lower extremity elevated in the sitting or lying position. Diet: AHA Activity: Ad lynette Followup: KEITH ESPINAL [Primary Care Provider] - 1-2 Weeks Time spent managing pt's care (in minutes): 33
[2022-12-11] MEDS ORDERED: PNEUMOCOCCAL VACCINE 0.5 ML IMVAC ONE (14:00)
== END 2022-12-11 14:30 | disposition home or self-care (01) | DRG 603 ==
LOC: ER 09:37 → ERHOLD 13:53 → 4TH 14:27
PROVIDERS: ADMIT Internal Medicine; ATTEND Internal Medicine
DX: L03.115 Cellulitis of right lower limb (principal); I10 Essential (primary) hypertension; E78.5 Hyperlipidemia, unspecified; D63.8 Anemia in other chronic diseases classified elsewhere; E66.09 Other obesity due to excess calories; J45.909 Unspecified asthma, uncomplicated; Z88.0 Allergy status to penicillin; Z68.30 Body mass index [BMI] 30.0-30.9, adult; Z79.82 Long term (current) use of aspirin; Z85.46 Personal history of malignant neoplasm of prostate; Z90.79 Acquired absence of other genital organ(s); Z87.891 Personal history of nicotine dependence; Z79.899 Other long term (current) drug therapy; Z91.048 Other nonmedicinal substance allergy status
CPT/HCPCS: 36415; 80048; 80053; 80202; 81001; 83605; 83735; 84100; 85025; 85610; 85730; 86140; 87040; 87635; 93005; 93971; 96374; 96375; 99285; J1650; J7030; J7040